=== PATIENT | male | born 1980 | race Two or more races ===

== ENCOUNTER 2023-05-10 11:17 | Inpatient (IN) ==
--- NOTE | 2023-05-10 12:07 | Emergency Department Note ---
History of Present Illness General Chief complaint: Mental Health Evaluation Stated complaint: DOC REF,MHE Time Seen by Provider: 05/10/23 11:58 History of Present Illness 43-year-old female presents emergency department with complaint of auditory hallucinations that started over the past few weeks. Patient was supposed to be on Risperdal. Patient states that the auditory voices are telling him mean things. Patient states he is not currently suicidal or homicidal. Patient denies any alcohol or drug ingestion. Patient has a history of the same. There are no other complaints Past Med/Surg History Social History Smoking Status: Never smoker Feels Safe at Home: Yes Gender Identity: Male Immunizations: Past medical history includes schizophrenia Social history negative for alcohol or drugs Review of Systems A total of 10 systems reviewed and were otherwise negative Psychiatric: + auditory hallucinations; no anxiety Physical Exam Vital Signs Vital Signs - 24 hr 05/10/23 11:20 05/10/23 15:01 Temperature 36.6 C Temperature Source Skin Pulse Rate 117 H Pulse Rate [Finger] 112 H Respiratory Rate 18 18 Blood Pressure 155/95 H Blood Pressure [Right Arm] 156/96 H Blood Pressure Mean 115 Blood Pressure Mean [Right Arm] 116 Pulse Oximetry 98 97 Oxygen Delivery Method Room Air Room Air Sepsis Recent Fever Within 48 Hours No Sepsis New/Unexplained Change in Mental Status No Sepsis Action Taken by Nursing No Action Required GENERAL: Patient is awake alert in no acute distress patient is resting comfortably and showing no signs of anxiety EYES: The conjunctivae are clear. The pupils are round and reactive. EARS, NOSE, MOUTH AND THROAT: The nose is without any evidence of any deformity. Mucous membranes are moist. Tongue is midline. NECK: The neck is nontender and supple. RESPIRATORY: Normal respiratory effort is noted there is no evidence of wheezing rhonchi or rales CARDIOVASCULAR: Regular rate and rhythm noted there no murmurs rubs or gallops normal S1 normal S2. GASTROINTESTINAL: The abdomen is soft. Abdomen is nontender. PELVIS: The Pelvis is stable. No tenderness to palpation is noted. BACK: No midline tenderness or or step-off noted range of motion in flexion extension as well as rotation no signs of muscle spasm noted MUSCULOSKELETAL/EXTREMITIES: There is no evidence of gross deformity full range of motion is noted in the hips and shoulders. SKIN: There is no obvious evidence of any rash. There are no petechiae, pallor or cyanosis noted. NEUROLOGIC: Patient is awake alert and oriented x3 strength is symmetric Psych, hallucinations that are auditory, no suicidal or homicidal ideation Medical Decision Making Medical Records Attestation: I reviewed the patient's medical records. Home Medications Current Medication List: was personally reviewed by me Laboratory Data Attestation: I reviewed the patient's lab results. Labs interpreted by me are unremarkable 05/10/23 11:39 05/10/23 11:39 Lab Results 05/10/23 05/10/23 05/10/23 Range/Units 11:39 11:39 11:39 WBC 8.27 (4.8-10.8) K/ul RBC 5.16 (4.70-6.10) M/uL Hgb 15.9 (14.0-18.0) g/dl Hct 46.6 (42.0-52.0) % MCV 90.3 (80.0-100.0) fL MCH 30.8 (25.0-34.0) pg MCHC 34.1 (32.0-36.0) g/dL RDW Std Deviation 42.2 (36.4-46.3) fL RDW Coeff of Daria 12.7 (11.5-14.5) % Plt Count 255 (130-400) K/uL MPV 10.4 (9.4-12.4) fL Immature Gran % (Auto) 0.2 % Neut % (Auto) 69.8 % Lymph % (Auto) 22.1 % [place] % (Auto) 7.3 % Eos % (Auto) 0.4 % Baso % (Auto) 0.2 % Neut # (Auto) 5.77 (1.40-6.50) K/uL Lymph # (Auto) 1.83 (1.20-3.40) K/uL [place] # (Auto) 0.60 H (0.11-0.59) K/uL Eos # (Auto) 0.03 (0.00-0.50) K/uL Baso # (Auto) 0.02 (0.00-0.20) K/uL Immature Gran # (Auto) 0.02 (0.01-0.20) K/uL Sodium 136 (136-145) mmol/L Potassium 4.0 (3.5-5.1) mmol/L Chloride 104 (98-107) mmol/L Carbon Dioxide 23 (21-32) mmol/L Anion Gap 9 (3-11) BUN 14 (6-23) mg/dl Creatinine 1.01 (0.6-1.4) mg/dl Est Cr Clr Drug Dosing 117.9 ml/min Est GFR ( Amer) 105.1 ml/min Est GFR (Non-Af Amer) 90.7 ml/min BUN/Creatinine Ratio 13.9 (10-20) Glucose 92 (70-99(Fasting)) mg/dl Calcium 10.0 (8.6-10.3) mg/dl Total Bilirubin 0.6 (0.2-1.0) mg/dl AST 30 (13-39) U/L ALT 57 H (7-52) U/L Alkaline Phosphatase 74 (34-104) U/L Total Protein 8.6 H (6.0-8.3) gm/dl Albumin 4.7 (3.4-5.0) gm/dl Globulin 3.9 (2.5-4.0) gm/dl Albumin/Globulin Ratio 1.2 (0.9-2) TSH 2.330 (0.300-4.500) uIu/ml Urine Color Urine Appearance (Clear) Urine pH (4.5-7.5) Ur Specific [place] (1.000-1.030) Urine Protein (Negative) Urine Glucose (UA) (Negative) Urine Ketones (Negative) Urine Blood (Negative) Urine Nitrite (Negative) Urine Bilirubin (Negative) Urine Urobilinogen (Negative) Ur Leukocyte Esterase (Negative) Salicylates < 3.0 L (3.0-30) mg/dl Urine Opiates Screen (Neg) Ur Methadone, Qual (Neg) Acetaminophen < 3 L (10-30) ug/ml Urine Barbiturates (Neg) Ur Phencyclidine (PCP) (Neg) U Amphetamin/Meth Scrn (Neg) MDMA (Ecstasy) Screen (Neg) U Benzodiazepines Scrn (Neg) Ur Cocaine Metabolite (Neg) U Marijuana (THC) Screen (Neg) Ethyl Alcohol mg/dL (<10.0) mg/dl SARS-CoV-2, RNA, NAAT (NEGATIVE) 05/10/23 05/10/23 05/10/23 Range/Units 11:39 11:39 11:39 WBC (4.8-10.8) K/ul RBC (4.70-6.10) M/uL Hgb (14.0-18.0) g/dl Hct (42.0-52.0) % MCV (80.0-100.0) fL MCH (25.0-34.0) pg MCHC (32.0-36.0) g/dL RDW Std Deviation (36.4-46.3) fL RDW Coeff of Daria (11.5-14.5) % Plt Count (130-400) K/uL MPV (9.4-12.4) fL Immature Gran % (Auto) % Neut % (Auto) % Lymph % (Auto) % [place] % (Auto) % Eos % (Auto) % Baso % (Auto) % Neut # (Auto) (1.40-6.50) K/uL Lymph # (Auto) (1.20-3.40) K/uL [place] # (Auto) (0.11-0.59) K/uL Eos # (Auto) (0.00-0.50) K/uL Baso # (Auto) (0.00-0.20) K/uL Immature Gran # (Auto) (0.01-0.20) K/uL Sodium (136-145) mmol/L Potassium (3.5-5.1) mmol/L Chloride (98-107) mmol/L Carbon Dioxide (21-32) mmol/L Anion Gap (3-11) BUN (6-23) mg/dl Creatinine (0.6-1.4) mg/dl Est Cr Clr Drug Dosing ml/min Est GFR ( Amer) ml/min Est GFR (Non-Af Amer) ml/min BUN/Creatinine Ratio (10-20) Glucose (70-99(Fasting)) mg/dl Calcium (8.6-10.3) mg/dl Total Bilirubin (0.2-1.0) mg/dl AST (13-39) U/L ALT (7-52) U/L Alkaline Phosphatase (34-104) U/L Total Protein (6.0-8.3) gm/dl Albumin (3.4-5.0) gm/dl Globulin (2.5-4.0) gm/dl Albumin/Globulin Ratio (0.9-2) TSH (0.300-4.500) uIu/ml Urine Color Yellow Urine Appearance Clear (Clear) Urine pH 7.0 (4.5-7.5) Ur Specific [place] 1.016 (1.000-1.030) Urine Protein Negative (Negative) Urine Glucose (UA) Negative (Negative) Urine Ketones Negative (Negative) Urine Blood Negative (Negative) Urine Nitrite Negative (Negative) Urine Bilirubin Negative (Negative) Urine Urobilinogen Negative (Negative) Ur Leukocyte Esterase Negative (Negative) Salicylates (3.0-30) mg/dl Urine Opiates Screen (Neg) Ur Methadone, Qual (Neg) Acetaminophen (10-30) ug/ml Urine Barbiturates (Neg) Ur Phencyclidine (PCP) (Neg) U Amphetamin/Meth Scrn (Neg) MDMA (Ecstasy) Screen (Neg) U Benzodiazepines Scrn (Neg) Ur Cocaine Metabolite (Neg) U Marijuana (THC) Screen (Neg) Ethyl Alcohol mg/dL < 10.0 (<10.0) mg/dl SARS-CoV-2, RNA, NAAT NEGATIVE (NEGATIVE) 05/10/23 Range/Units 11:39 WBC (4.8-10.8) K/ul RBC (4.70-6.10) M/uL Hgb (14.0-18.0) g/dl Hct (42.0-52.0) % MCV (80.0-100.0) fL MCH (25.0-34.0) pg MCHC (32.0-36.0) g/dL RDW Std Deviation (36.4-46.3) fL RDW Coeff of Daria (11.5-14.5) % Plt Count (130-400) K/uL MPV (9.4-12.4) fL Immature Gran % (Auto) % Neut % (Auto) % Lymph % (Auto) % [place] % (Auto) % Eos % (Auto) % Baso % (Auto) % Neut # (Auto) (1.40-6.50) K/uL Lymph # (Auto) (1.20-3.40) K/uL [place] # (Auto) (0.11-0.59) K/uL Eos # (Auto) (0.00-0.50) K/uL Baso # (Auto) (0.00-0.20) K/uL Immature Gran # (Auto) (0.01-0.20) K/uL Sodium (136-145) mmol/L Potassium (3.5-5.1) mmol/L Chloride (98-107) mmol/L Carbon Dioxide (21-32) mmol/L Anion Gap (3-11) BUN (6-23) mg/dl Creatinine (0.6-1.4) mg/dl Est Cr Clr Drug Dosing ml/min Est GFR ( Amer) ml/min Est GFR (Non-Af Amer) ml/min BUN/Creatinine Ratio (10-20) Glucose (70-99(Fasting)) mg/dl Calcium (8.6-10.3) mg/dl Total Bilirubin (0.2-1.0) mg/dl AST (13-39) U/L ALT (7-52) U/L Alkaline Phosphatase (34-104) U/L Total Protein (6.0-8.3) gm/dl Albumin (3.4-5.0) gm/dl Globulin (2.5-4.0) gm/dl Albumin/Globulin Ratio (0.9-2) TSH (0.300-4.500) uIu/ml Urine Color Urine Appearance (Clear) Urine pH (4.5-7.5) Ur Specific [place] (1.000-1.030) Urine Protein (Negative) Urine Glucose (UA) (Negative) Urine Ketones (Negative) Urine Blood (Negative) Urine Nitrite (Negative) Urine Bilirubin (Negative) Urine Urobilinogen (Negative) Ur Leukocyte Esterase (Negative) Salicylates (3.0-30) mg/dl Urine Opiates Screen Neg (Neg) Ur Methadone, Qual Neg (Neg) Acetaminophen (10-30) ug/ml Urine Barbiturates Neg (Neg) Ur Phencyclidine (PCP) Neg (Neg) U Amphetamin/Meth Scrn Neg (Neg) MDMA (Ecstasy) Screen Neg (Neg) U Benzodiazepines Scrn Neg (Neg) Ur Cocaine Metabolite Neg (Neg) U Marijuana (THC) Screen Neg (Neg) Ethyl Alcohol mg/dL (<10.0) mg/dl SARS-CoV-2, RNA, NAAT (NEGATIVE) ECG Data Attestation: I personally reviewed and interpreted this ECG as follows: Additional Comments: EKG interpreted by me sinus tachycardia rate of 115, normal intervals normal axis, nonspecific ST-T change in the anterolateral leads no obvious ST segment elevation or depression, no prior EKGs for comparison MDM Narrative Medical decision making differential diagnosis includes schizophrenia, bipolar disorder, anxiety, medication noncompliance, suicidal ideation Plan is to check psychiatric labs and have case management evaluate the patient for psychiatric disposition Family is at bedside and the father states that the patient has a history of hallucinations and has been off his meds. They report that he is not currently suicidal Patient is medically cleared for psychiatric evaluation 1500 3 S. requested an EKG patient has no current chest pain the patient is very anxious, the patient has no prior EKG, I do not suspect ischemia in this patient at this time Case was turned over at [address] Ward pending disposition Impression & Plan Suicidal ideation, Auditory hallucination Discharge Plan Visit Data Chief Complaint: Mental Health Evaluation Stated Complaint: DOC REF,MHE ED Provider: Agnes Ward Discharge Problem: Suicidal ideation, Auditory hallucination Patient Disposition: Still a Patient Forms Stand Alone Forms: My [facility], Suicide Prevention Resources Referrals [facility] [Non-Staff] -
[2023-05-10 12:30] LABS: Basophils # (auto) 0.02 K/uL (0.00-0.20); Basophils % (auto) 0.2 %; Eosinophils # (auto) 0.03 K/uL (0.00-0.50); Eosinophils % (auto) 0.4 %; Hematocrit (blood only) 46.6 % (42.0-52.0); Hemoglobin 15.9 g/dl (14.0-18.0); Immature Granulocytes # (auto) 0.02 K/uL (0.01-0.20); Immature Granulocytes % (auto) 0.2 %; Lymphocytes # (auto) 1.83 K/uL (1.20-3.40); Lymphocytes % (auto) 22.1 %; Mean Corpuscular Hemoglobin 30.8 pg (25.0-34.0); Mean Corpuscular Hgb Conc 34.1 g/dL (32.0-36.0); Mean Corpuscular Volume 90.3 fL (80.0-100.0); Mean Platelet Volume 10.4 fL (9.4-12.4); Monocytes % (auto) 7.3 %; Neutrophils # (auto) 5.77 K/uL (1.40-6.50); Neutrophils % (auto) 69.8 %; Platelet Count 255 K/uL (130-400); RDW Coefficient of Variation 12.7 % (11.5-14.5); RDW Standard Deviation 42.2 fL (36.4-46.3); Red Blood Count 5.16 M/uL (4.70-6.10); White Blood Count 8.27 K/ul (4.8-10.8)
[2023-05-10 12:31] LABS: Appearance Urine Clear (Clear); Bilirubin Urine Negative (Negative); Blood Urine Negative (Negative); Color Urine Yellow; Glucose Urine UA Negative (Negative); Ketones Urine Negative (Negative); Leukocyte Esterase Urine Negative (Negative); Nitrite Urine Negative (Negative); Protein Urine Negative (Negative); Specific Gravity Urine 1.016 (1.000-1.030); Urobilinogen Urine Negative (Negative)
[2023-05-10 12:44] LABS: Albumin Level 4.7 gm/dl (3.4-5.0); Bilirubin,Total 0.6 mg/dl (0.2-1.0)
[2023-05-10 12:50] LABS: Albumin Globulin Ratio 1.2 (0.9-2); BUN Creatinine Ratio 13.9 (10-20); Creatinine Clr Calc Pharmacy 117.9 ml/min; Est GFR (African American) 105.1 ml/min; Est GFR (Non-African American) 90.7 ml/min; Globulin 3.9 gm/dl (2.5-4.0); Total Protein 8.6 gm/dl (6.0-8.3)
[2023-05-10 13:06] LABS: Acetaminophen < 3 ug/ml (10-30); Salicylate < 3.0 mg/dl (3.0-30)
[2023-05-10 13:10] LABS: Amphetamines+Metham, Urine Neg (Neg); Barbiturates, Urine Neg (Neg); Benzodiazepine, Urine Neg (Neg); Cocaine, Urine Neg (Neg); MDMA (Ecstacy), Urine Neg (Neg); Methadone, Urine Neg (Neg); Opiate, Urine Neg (Neg); Phencyclidine, Urine Neg (Neg)
[2023-05-10 13:41] LABS: Thyroid Stimulating Hormone 2.33 uIu/ml (0.300-4.500)
--- NOTE | 2023-05-10 17:00 | Emergency Department Note ---
ED Visit Note I received this patient in signout at the change of shift from Dr. Fuentes pending psychiatric referral for auditory hallucinations, suicidality without a plan. Patient was evaluated by 3 S. and accepted and accepted for inpatient psychiatric admission. Please refer to previous documentation for further details of the history, physical and visit. .
[2023-05-10] MEDS ORDERED: ACETAMINOPHEN 325 MG TAB PO PRN (21:02)
[2023-05-10] MEDS ORDERED: MAGNESIUM HYDROXIDE SUSP 30 ML UDC PO PRN (21:02)
[2023-05-10] MEDS ORDERED: hydrOXYzine HCl 25 MG TAB PO PRN ×2 (21:02)
[2023-05-10] MEDS ORDERED: SODIUM CHLORIDE 0.65% NA SOLN 45 ML (OCEAN) PRN (21:02)
[2023-05-10] MEDS ORDERED: ALUMINUM/MAGNESIUM SUSP 30 ML UDC PO PRN (21:02)
[2023-05-10] MEDS ORDERED: BISMUTH SUBSALICYLATE LIQD 236 ML PO PRN (21:02)
[2023-05-10] MEDS ORDERED: risperiDONE 3 MG TABLET PO SCH (22:00)
--- NOTE | 2023-05-10 22:36 | Electrocardiogram Report ---
Test Reason : Blood Pressure : / mmHG Vent. Rate : 115 BPM Atrial Rate : 115 BPM P-R Int : 130 ms QRS Dur : 086 ms QT Int : 304 ms P-R-T Axes : 044 034 -32 degrees QTc Int : 420 ms Sinus tachycardia Cannot rule out Inferior infarct , age undetermined Abnormal ECG No previous ECGs available Confirmed by Jac Abdi ([id number]) on 05/10/2023 10:36:26 PM Referred By: REFERRED SELF Confirmed By:Jac Abdi
--- NOTE | 2023-05-11 16:11 | History & Physical ---
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 He has a long history of psychosis and mood symptoms. These were under good control on risperidone, but he cut the dose due to weight gain and reports no current benefit at all. He's very depressed and anxious, and is experiencing a constant negative commentary on his actions and voices telling him others would be better off if he were . He finds this frightening and ego-dystonic and denies any suicidal intent or plan. Discussed the evidence that risperidone is effective, albeit only at a dose that seems to cause side effects. Paliperidone might therefore be a reasonable alternative, and he doesn't recall any previous trials of this medication (nor of aripiprazole, which could well cause less weight gain than risperidone and which he also doesn't think he's taken before. Risks and benefits of, and alternatives to, the use of paliperidone (Invega) for mood and psychosis were reviewed. This discussion included but was not limited to issues known potentially to be associated with use of such medication, especially at high doses or with longer use, including sedation, weight gain, problems with glucose metabolism including Type II diabetes, problems with lipid metabolism, cardiac conduction problems, or rarely involuntary movements, parkinsonian symptoms, or even acute dystonia or life- threatening Neuroleptic Malignant Syndrome. Discussed the need for periodic monitoring of fasting glucose or Hemoglobin A1c and fasting lipid panel, which the patient declined, for baseline monitoring. The patient agreed to start a trial of paliperidone. Overall I spent a total of 68 minutes for this admission including review of chart records, review of test results, direct evaluation of the patient [id number], reconciling and ordering medication, medication education with the patient, risk assessment, discussion during interdisciplinary treatment rounds, and documentation in the electronic health record. (1) Schizoaffective disorder, bipolar type: Plan The patient was admitted to the [facility] ([facility]) on q15 minute checks (behavioral with suicide precautions) for safety.The patient will participate in group, recreational, and milieu therapies and will be offered additional individual and family sessions as clinically appropriate. * stop risperidone * start paliperidone 3 mg QHS Inventory Assets Strengths: supportive relationships, voluntary, intelligent employed, Needs: safety and stabilization, medication adjustment, additional coping skills Suicide Risk Level Suicide Risk Level: Moderate (q15 min suicide checks) Suicide Risk Level Comments: denies suicidal thoughts but is having command auditory hallucinations Risk Factors Assessment Male: Yes : Yes Do You Have Access To A Gun?: No Health Problems: No Mental Health Diagnoses: Yes Previous Psychiatric Hospitalization: Yes Protective Factors Assessment : No Responsible for Young Children: No Employed: Yes Supportive Family: Yes Psychiatric History Identifying Data MARCELO DRAPER is a 43-year-old M who currently lives in [place] usually alone, but whose parents have been staying with him due to their concerns about his, with [], has a history of [], and was admitted on 05/10/23 19:39 on a 201 voluntary commitment for suicidal command auditory hallucinations. Chief Complaint "The voices have quieted some". History of Present Illness As part of a thorough review of the available medical records, I have read and confirmed the following note by the ED physician: "43-year-old female [sic] presents emergency department with complaint of auditory hallucinations that started over the past few weeks. Patient was supposed to be on Risperdal. Patient states that the auditory voices are telling him mean things. Patient states he is not currently suicidal or homicidal. Patient denies any alcohol or drug ingestion. Patient has a history of the same." and the following note by the ED psychiatric child support case officer: "Patient present flat, reporting disorganized thought process, minimally responding to questions and occasional irritation. For the past few weeks, patient has been experiencing command hallucination with the voices saying everybody would be better off if you kill yourself. At this time, patient denies acting out on these thoughts yet or developing a plan. Prior to arrival, patient was seen at his outpatient provider at [facility] and she recommended that patient present to the ED for further evaluation. Patient is prescribed Risperdal, but cut his dose in half, on his own volition and not recommended by his medication management provider. Patient was unable to articulate why he decided to cut his dosage. 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 Patient reports depressive symptoms as social withdrawal, anhedonia, lack of motivation, decreased appetite, loss of daily functioning, feelings of helpless/hopelessness, decreased concentration and decreased sleep of 5-6 hours of broken sleep. Patient described severe anxiety on most days with symptoms of sweating, excessive worry, sleep disturbance and heart palpitations. Patient reports rarely drinking alcohol and denying drug or tobacco use. Patient lives in an apartment with his parents. Patient reports previous psychiatric admissions to include [facility] and [facility]. Patient acknowledges he is struggling and knows when he needs inpatient help and is voluntary for treatment" Review of the medical record reveals no previous or outside psychiatric records, despite his report of having been admitted here before. He appears to carry a d iagnosis of schizoaffective disorder. Review of pertinent labs reveals they are noncontributory. A urine toxicology screen was negative for all tested substrates. BAL was <10 mg/dL. Pt reports chronic voices for many years. These seem to be female and often take the form of inaudible whispers but which at times make a running, derogatory comment on everything he does. He says he's been admitted numerous times for this including here, but records of any admissions do not appear in the EHR. He says he's supposed to be taking risperidone 3 mg BID prescribed at [facility] and that at that dose the voices are barely noticeable. However, he's experienced significant weight gain and has reduced the dose to 1.5 mg once a day without having told his prescriber. Since that change the voices have recurred and have been telling him that he's useless and others would be better off if he were to kill himself. He's felt very depressed, and has withdrawn from his already scant social life. He has lost interest, has no energy or motivation, reports initial and middle insomnia, has reduced appetite and has "pretty much stopped doing everything". He has felt very anxious with some episodic panic symptoms. Past Psychiatric History Previous Psych History: long history of psychosis and mood symptoms Current Psychiatric Diagnosis: [facility]: [facility] Previous Psych Admissions: Pt reports here and Counts include 234 beds at the [facility] Do You Have Access To A Gun?: No History of Previous Suicide Attempt: Yes Past Medication Trials: says he's had "lots", doesn't recognize aripiprazole/Abilify or paliperidone/Invega as something he's triedd Allergies Allergy/AdvReac Type Severity Reaction Status Date / Time No Known Allergies Allergy Unverified 05/10/23 17:17 Home Medications Medication Instructions Recorded Confirmed Type risperidone 3 mg tablet 3 mg PO HS 05/10/23 05/10/23 History Family History Family History of: Psychosis/ThoughtDisorder Family Mental Health History Comment: older brother diagnosed with schizophrenia-- brother has been hospitalized in the past Alcohol History Hx of Alcohol Use Over the Past 12 Months: Yes (occasional) AUDIT Total Score: 1 Smoking Use Have You Smoked or Used Tobacco Products in the Last 30 Days: No Smoking Status: Never smoker Substance History Hx of Prescription Med Misuse Over the Past 12 Months: No Hx of Over the Counter Med Misuse Over the Past 12 Months: No Hx of Inhalent Misuse Over the Past 12 Months: No Hx of Organic Substance Use Over the Past 12 Months: No Hx of Illegal Substances/Street Drug Use Over Past 12 Months: No Problems as a Result of Past Substance Use: None Identified Personal History Living Arrangements: Apartment Living Arrangements Comments: parents come and go often, are here right now Highest Grade Completed: Graduate School Highest Grade Completed Comment: just completed Ph.D at [employer] Marital Status: Single Number Of Children: 0 Beliefs That Will Affect Care: None Patient History Medical History (Updated 05/11/23 @ 16:31 by Hernan Sarabia MD) Schizoaffective disorder, bipolar type Social History Smoking Status: Never smoker Preferred Language: French Communication Ability: Effective [place] [employer] Required: No Beliefs That Will Affect Care: None Feels Safe at Home: Yes Gender Identity: Male Assistive Devices: None Review of Systems Psychiatric: + depression, + hopelessness, + anhedonia, + abnormal sleep pattern, + change in appetite, + suicidal ideation, + anxiety, + difficulty concentrating and + auditory hallucinations Physical Exam Psychiatric: Orientation: alert, oriented to person, oriented to place, oriented to time and cooperative Apperance: appropriately dressed and appropriately groomed Eye Contact: + fair eye contact (blinks a lot) Motor Behavior: + psychomotor retardation Speech: normal rate/rhythm/volume of speech (aprosodic) Affect: + flat affect; + mood not congruent with affect Mood: + depressed mood and + anxious mood Thought Process: + thought blocking and + concrete thought process Thought Content: + hopelessness and + loneliness Suicidal Thoughts: denies suicidal thoughts ( command hallucinations that he doesn't think of as his own thoughts), denies suicidal plan and denies suicidal intent Homicidal Thoughts: denies homicidal thoughts Hallucinations: + auditory hallucinations (constant female voices; often whispers, sometimes critical commentary); no visual hallucinations Cognition: recent memory grossly intact, remote memory grossly intact and language grossly intact; + attention not intact (distracted by voices) Estimated Intelligence: consistent with education level Insight: + fair insight Judgment: + fair judgement Vital Signs (Past 24 Hours): Last Vital Signs Temp 36.5 C 05/11/23 06:40 Pulse 101 H 05/11/23 06:41 Resp 18 05/11/23 06:40 BP 139/96 05/11/23 06:41 Pulse Ox 100 05/10/23 20:45 O2 Del Method Room Air 05/10/23 20:45 Exam Statement: A physical exam was performed in the ED for the purposes of medical clearance. I accept that physical as correct and adequate for the purposes of the inpatient physical exam. Results & Data ([facility]) Current Inpatient Medications Current Inpatient Medications: Current Inpatient Medications Acetaminophen (Acetaminophen 325 Mg Tab) 650 mg PO Q4H PRN PRN Reason: Headache or Minor Fever Stop: 06/09/23 21:01 Al Hydrox/Mg Hydrox/Simethicone (Aluminum/Magnesium Susp 30 Ml Udc) 30 ml PO Q4H PRN PRN Reason: GI Upset Stop: 06/09/23 21:01 Bismuth Subsalicylate (Bismuth Subsalicylate Liqd 236 Ml) 15 ml PO PRN PRN PRN Reason: Loose Stool Stop: 06/09/23 21:01 Hydroxyzine HCl (Hydroxyzine Hcl 25 Mg Tab) 50 mg PO HSZ PRN PRN Reason: Insomnia Stop: 06/09/23 21:01 Hydroxyzine HCl (Hydroxyzine Hcl 25 Mg Tab) 25 mg PO Q4H PRN PRN Reason: Anxiety Stop: 06/09/23 21:01 Magnesium Hydroxide (Magnesium Hydroxide Susp 30 Ml Udc) 30 ml PO DAILY PRN PRN Reason: Constipation Stop: 06/09/23 21:01 Risperidone (Risperidone 3 Mg Tablet) 3 mg PO HS ANETA Stop: 06/09/23 21:59 Last Admin: 05/10/23 21:56 Dose: 3 mg Sodium Chloride (Sodium Chloride 0.65% Na Soln 45 Ml ([place])) 1 - 2 sprays NA PRN PRN PRN Reason: Nasal Dryness/Congestion Stop: 06/09/23 21:01
[2023-05-11] MEDS: PALIPERIDONE 3 MG TABCR PO SCH (21:24)
--- NOTE | 2023-05-12 09:21 | Psychiatric Progress Note ---
Date of Service May 12, 2023 Impression / Recommendations Impression Agree with assessment per Dr. 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 He has a long history of psychosis and mood symptoms. These were under good control on risperidone, but he cut the dose due to weight gain and reports no current benefit at all. He's very depressed and anxious, and is experiencing a constant negative commentary on his actions and voices telling him others would be better off if he were . He finds this frightening and ego-dystonic and denies any suicidal intent or plan. 05/12/2023: Reviewed interim progress. Feels so far the Invega may be helping to lessen the voices today as he has not experienced any commands to hurt himself today. Will continue to monitor his BP as this was elevated this morning though he denies any associated symptoms with this. Had brief abdominal pain last night which has since resolved. Will continue with Invega trial for now. Overall, I spent a total of 35 minutes with this case including review of chart records, direct evaluation of the patient at bedside, counseling the patient, discussion during interdisciplinary treatment rounds, risk assessment, and documentation in the electronic health record. (1) Schizoaffective disorder, bipolar type: Plan 05/12/2023: Continue current medications and tx plan. Fasting lipid panel and glucose in AM given use of Invega. 05/11/2023: The patient was admitted to the [facility] ([facility] mental health unit) on q15 minute checks (behavioral with suicide precautions) for safety.The patient will participate in group, recreational, and milieu therapies and will be offered additional individual and family sessions as clinically appropriate. * stop risperidone * start paliperidone 3 mg QHS Inventory Assets Strengths: supportive relationships, voluntary, intelligent employed, Needs: safety and stabilization, medication adjustment, additional coping skills Suicide Risk Level Suicide Risk Level: High-Moderate (q15 min suicide checks) (periods of command AH to kill himself but these are ego-dystonic and he feels comfortable alerting staff if these resume or intensify or if he feels unable to remain safe, currently denies any commands to hurt himself ) Risk Factors Assessment Male: Yes : Yes Do You Have Access To A Gun?: No Health Problems: No Mental Health Diagnoses: Yes Previous Psychiatric Hospitalization: Yes Protective Factors Assessment : No Responsible for Young Children: No Employed: Yes Supportive Family: Yes Interval History Identifying Information MARCELO DRAPER is a 43-year-old M who currently lives in [place] usually alone, but whose parents have been staying with him due to their concerns about him with a history of schizoaffective disorder, and was admitted on 05/10/23 19:39 on a 201 voluntary commitment for suicidal command auditory hallucinations. Chief Complaint "A little less today". Review of Systems Sleep Information Total Hours of Sleep: 5.5 Meal Information Percent Meal Consumed - Breakfast: 100 Percent Meal Consumed - Lunch: 100 Percent Meal Consumed - Dinner: 100 Subjective Subjective Patient was seen & assessed and interval progress reviewed with treatment team nursing and social work. Very flat, depressed, suspicious. Has not been leaving his room except for meals. Not attending any groups. Reports he experienced some abdominal pain last night after taking Invega but that this resolved and none so far today. Thinks the Invega is helping to quiet the voices some. Yesterday they were telling him to kill himself, they have not done that today. He denies any associated symptoms with his elevated BP this morning, unclear if he's had HTN or high BP in the past. Physical Exam Psychiatric Orientation: alert, oriented x 3 and + guarded Apperance: appropriately dressed and appropriately groomed Eye Contact: + fair eye contact Motor Behavior: + psychomotor retardation Speech: normal rate/rhythm/volume of speech (stutters at times) Affect: + flat affect Mood: + depressed mood and + anxious mood Thought Process: + thought blocking and + concrete thought process Thought Content: reality based without delusions and + hopelessness Suicidal Thoughts: denies suicidal thoughts ( command hallucinations that he doesn't think of as his own thoughts ), denies suicidal plan and denies suicidal intent Homicidal Thoughts: denies homicidal thoughts Hallucinations: + auditory hallucinations (sometimes critical commentary, denies any command so far today); no visual hallucinations Cognition: recent memory grossly intact, remote memory grossly intact and language grossly intact; + attention not intact (distracted by voices) Estimated Intelligence: consistent with education level Insight: + fair insight Judgment: + fair judgement Vital Signs (Past 24 Hours) Last Vital Signs Temp 37.7 C H 05/12/23 06:33 Pulse 89 05/12/23 06:35 Resp 18 05/12/23 06:33 BP 159/105 H 05/12/23 06:35 Pulse Ox 100 05/10/23 20:45 O2 Del Method Room Air 05/10/23 20:45 Results & Data ([facility]) Current Inpatient Medications Current Inpatient Medications: Current Inpatient Medications Acetaminophen (Acetaminophen 325 Mg Tab) 650 mg PO Q4H PRN PRN Reason: Headache or Minor Fever Stop: 06/09/23 21:01 Al Hydrox/Mg Hydrox/Simethicone (Aluminum/Magnesium Susp 30 Ml Udc) 30 ml PO Q4H PRN PRN Reason: GI Upset Stop: 06/09/23 21:01 Bismuth Subsalicylate (Bismuth Subsalicylate Liqd 236 Ml) 15 ml PO PRN PRN PRN Reason: Loose Stool Stop: 06/09/23 21:01 Hydroxyzine HCl (Hydroxyzine Hcl 25 Mg Tab) 50 mg PO HSZ PRN PRN Reason: Insomnia Stop: 06/09/23 21:01 Hydroxyzine HCl (Hydroxyzine Hcl 25 Mg Tab) 25 mg PO Q4H PRN PRN Reason: Anxiety Stop: 06/09/23 21:01 Magnesium Hydroxide (Magnesium Hydroxide Susp 30 Ml Udc) 30 ml PO DAILY PRN PRN Reason: Constipation Stop: 06/09/23 21:01 Paliperidone (Paliperidone 3 Mg Tabcr) 3 mg PO HS ANETA Stop: 06/10/23 21:59 Last Admin: 05/11/23 21:24 Dose: 3 mg Sodium Chloride (Sodium Chloride 0.65% Na Soln 45 Ml ([place])) 1 - 2 sprays NA PRN PRN PRN Reason: Nasal Dryness/Congestion Stop: 06/09/23 21:01 Mental Health & Subst Abuse Tx Therapist Name of Therapist: Shagufta [facility] Post Discharge Appointments Primary Care Physician Name Of Family Doctor/PCP: Denies
[2023-05-12] MEDS: PALIPERIDONE 3 MG TABCR PO SCH (21:11)
[2023-05-13 08:08] LABS: Chol HDL Ratio 4.4 (0-5)
--- NOTE | 2023-05-13 09:10 | Psychiatric Progress Note ---
Date of Service May 13, 2023 Impression / Recommendations Impression Agree with assessment per Dr. 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 He has a long history of psychosis and mood symptoms. These were under good control on risperidone, but he cut the dose due to weight gain and reports no current benefit at all. He's very depressed and anxious, and is experiencing a constant negative commentary on his actions and voices telling him others would be better off if he were . He finds this frightening and ego-dystonic and denies any suicidal intent or plan. 05/13/2023: He reports improvement in voices but seems internally preoccupied and remains very isolative to his room with no spontaneous conversation and seems guarded vs anxious. Did seem to brighten when his parents visited yesterday. Fasting labwork reviewed, TGs slightly elevated, fasting glucose 100, cholesterol normal. Tolerating Invega so far. Overall, I spent a total of 35 minutes with this case including review of chart records, direct evaluation of the patient at bedside, counseling the patient, discussion during interdisciplinary treatment rounds, risk assessment, and documentation in the electronic health record. (1) Schizoaffective disorder, bipolar type: Plan 05/13/2023: Continue current medications and tx plan. 05/12/2023: Continue current medications and tx plan. Fasting lipid panel and glucose in AM given use of Invega. 05/11/2023: The patient was admitted to the [facility] ([facility] mental health unit) on q15 minute checks (behavioral with suicide precautions) for safety.The patient will participate in group, recreational, and milieu therapies and will be offered additional individual and family sessions as clinically appropriate. * stop risperidone * start paliperidone 3 mg QHS Inventory Assets Strengths: supportive relationships, voluntary, intelligent employed, Needs: safety and stabilization, medication adjustment, additional coping skills Suicide Risk Level Suicide Risk Level: Moderate (q15 min suicide checks) (periods of command AH to kill himself but these are ego-dystonic and he feels comfortable alerting staff if these resume or intensify or if he feels unable to remain safe, currently denies any AH ) Risk Factors Assessment Male: Yes : Yes Do You Have Access To A Gun?: No Health Problems: No Mental Health Diagnoses: Yes Previous Psychiatric Hospitalization: Yes Protective Factors Assessment : No Responsible for Young Children: No Employed: Yes Supportive Family: Yes Interval History Identifying Information MARCELO DRAPER is a 43-year-old M who currently lives in [place] usually alone, but whose parents have been staying with him due to their concerns about him with a history of schizoaffective disorder, and was admitted on 05/10/23 19:39 on a 201 voluntary commitment for suicidal command auditory hallucinations. Chief Complaint "I'm ok". Review of Systems Sleep Information Total Hours of Sleep: 6.25 Meal Information Percent Meal Consumed - Breakfast: 100 Percent Meal Consumed - Lunch: 100 Percent Meal Consumed - Dinner: 100 Subjective Subjective Patient was seen & assessed and interval progress reviewed with treatment team nursing and social work. Visited with his parents yesterday. No groups during the day yesterday. Conversing appropriately but with some delay with RN yesterday. Denied hearing any voices yesterday. Encouraged to attend groups and he did attend evening community meeting but did not participate. Showered this morning. Reading textbook in his room. Difficult to engage around neutral topics but reports no current auditory hallucinations. Had mild abdominal pain last night after taking Invega but feels this was much less than night prior. He wants to continue with Invega for now. Feels his elevated BP is likely due to being "nervous" when it is checked, reports this is always the case for him, unclear if prior history of white coat HTN. Physical Exam Psychiatric Orientation: alert, oriented x 3 and + guarded Apperance: appropriately dressed and appropriately groomed Eye Contact: + fair eye contact Motor Behavior: + psychomotor retardation Speech: normal rate/rhythm/volume of speech (stutters at times) Affect: + flat affect Mood: + depressed mood and + anxious mood Thought Process: + thought blocking and + concrete thought process Thought Content: reality based without delusions and + hopelessness Suicidal Thoughts: denies suicidal thoughts, denies suicidal plan and denies suicidal intent Homicidal Thoughts: denies homicidal thoughts Hallucinations: + auditory hallucinations (reports lessening significantly); no visual hallucinations Cognition: recent memory grossly intact, remote memory grossly intact and language grossly intact; + attention not intact Estimated Intelligence: consistent with education level Insight: + fair insight Judgment: + limited judgement Vital Signs (Past 24 Hours) Last Vital Signs Temp 36.9 C 05/13/23 06:57 Pulse 90 05/13/23 06:57 Resp 16 05/13/23 06:57 BP 142/94 H 05/13/23 06:58 Pulse Ox 98 05/13/23 06:57 O2 Del Method Room Air 05/13/23 06:57 Results & Data ([facility]) Laboratory Results Laboratory Results - last 24 hr 05/13/23 07:26 Fasting Glucose 100 H Triglycerides 195 H Cholesterol 166 LDL Cholesterol, Calc 89 VLDL Cholesterol, Calc 39 H HDL Cholesterol 38 Cholesterol/HDL Ratio 4.4 Current Inpatient Medications Current Inpatient Medications: Current Inpatient Medications Acetaminophen (Acetaminophen 325 Mg Tab) 650 mg PO Q4H PRN PRN Reason: Headache or Minor Fever Stop: 06/09/23 21:01 Al Hydrox/Mg Hydrox/Simethicone (Aluminum/Magnesium Susp 30 Ml Udc) 30 ml PO Q4H PRN PRN Reason: GI Upset Stop: 06/09/23 21:01 Bismuth Subsalicylate (Bismuth Subsalicylate Liqd 236 Ml) 15 ml PO PRN PRN PRN Reason: Loose Stool Stop: 06/09/23 21:01 Hydroxyzine HCl (Hydroxyzine Hcl 25 Mg Tab) 50 mg PO HSZ PRN PRN Reason: Insomnia Stop: 06/09/23 21:01 Hydroxyzine HCl (Hydroxyzine Hcl 25 Mg Tab) 25 mg PO Q4H PRN PRN Reason: Anxiety Stop: 06/09/23 21:01 Magnesium Hydroxide (Magnesium Hydroxide Susp 30 Ml Udc) 30 ml PO DAILY PRN PRN Reason: Constipation Stop: 06/09/23 21:01 Paliperidone (Paliperidone 3 Mg Tabcr) 3 mg PO HS ANETA Stop: 06/10/23 21:59 Last Admin: 05/12/23 21:11 Dose: 3 mg Sodium Chloride (Sodium Chloride 0.65% Na Soln 45 Ml ([place])) 1 - 2 sprays NA PRN PRN PRN Reason: Nasal Dryness/Congestion Stop: 06/09/23 21:01 Mental Health & Subst Abuse Tx Therapist [facility] Primary Care Physician Name Of Family Doctor/PCP: Denies
[2023-05-13] MEDS: PALIPERIDONE 3 MG TABCR PO SCH (21:06)
--- NOTE | 2023-05-14 09:03 | Psychiatric Progress Note ---
Date of Service May 14, 2023 Impression / Recommendations Impression Agree with assessment per Dr. 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 He has a long history of psychosis and mood symptoms. These were under good control on risperidone, but he cut the dose due to weight gain and reports no current benefit at all. He's very depressed and anxious, and is experiencing a constant negative commentary on his actions and voices telling him others would be better off if he were . He finds this frightening and ego-dystonic and denies any suicidal intent or plan. 05/14/2023: Tolerated the Invega well last night without any side effects and no longer experiencing any auditory hallucinations or SI. Discussed option for Invega THOMAS, he's not interested in this, prefers the po version. Discussed sometimes Invega can have high cost with insurance so script sent early to pharmacy in effort to ensure affordability after discharge. Encouragingly less isolative to his room today, attended a few groups and reading in the main room. Overall, I spent a total of 35 minutes with this case including review of chart records, direct evaluation of the patient at bedside, counseling the patient, discussion during interdisciplinary treatment rounds, risk assessment, and documentation in the electronic health record. (1) Schizoaffective disorder, bipolar type: Plan 05/14/2023: Continue current medications and tx plan. 05/13/2023: Continue current medications and tx plan. 05/12/2023: Continue current medications and tx plan. Fasting lipid panel and glucose in AM given use of Invega. 05/11/2023: The patient was admitted to the [facility] on q15 minute checks (behavioral with suicide precautions) for safety.The patient will participate in group, recreational, and milieu therapies and will be offered additional individual and family sessions as clinically appropriate. * stop risperidone * start paliperidone 3 mg QHS Inventory Assets Strengths: supportive relationships, voluntary, intelligent employed, Needs: safety and stabilization, medication adjustment, additional coping skills Suicide Risk Level Suicide Risk Level: Moderate (q15 min suicide checks) (periods of command AH to kill himself prior to admission but these have now resolved and he feels comfortable alerting staff if these resume or intensify or if he feels unable to remain safe, currently denies any AH ) Suicide Risk Level Comments: s Risk Factors Assessment Male: Yes : Yes Do You Have Access To A Gun?: No Health Problems: No Mental Health Diagnoses: Yes Previous Psychiatric Hospitalization: Yes Protective Factors Assessment : No Responsible for Young Children: No Employed: Yes Supportive Family: Yes Interval History Identifying Information MARCELO DRAPER is a 43-year-old M who currently lives in [place] usually alone, but whose parents have been staying with him due to their concerns about him with a history of schizoaffective disorder, and was admitted on 05/10/23 19:39 on a 201 voluntary commitment for suicidal command auditory hallucinations. Chief Complaint "Fine". Review of Systems Sleep Information Total Hours of Sleep: 8.5 Meal Information Percent Meal Consumed - Breakfast: 100 Percent Meal Consumed - Lunch: 100 Percent Meal Consumed - Dinner: 100 Subjective Subjective Patient was seen & assessed and interval progress reviewed with treatment team nursing and social work. Visited with his parents who felt he was looking more like himself. Today attended his first groups. Remains very reserved but spent some time in the main room reading an engineering textbook. No abdominal pain last evening with Invega dose. He denies any voices today nor commands to harm himself nor SI. Feels the Invega is helping a lot. Hopeful for discharge soon. Physical Exam Psychiatric Orientation: alert and oriented x 3 Apperance: appropriately dressed and appropriately groomed Eye Contact: good eye contact Motor Behavior: no abnormal motor movements Speech: normal rate/rhythm/volume of speech (quiet) Affect: + constricted affect Mood: no depressed mood and no anxious mood Thought Process: + concrete thought process Thought Content: reality based without delusions Suicidal Thoughts: denies suicidal thoughts, denies suicidal plan and denies suicidal intent Homicidal Thoughts: denies homicidal thoughts Hallucinations: no auditory hallucinations and no visual hallucinations Cognition: recent memory grossly intact, remote memory grossly intact, attention grossly intact and language grossly intact Estimated Intelligence: consistent with education level Insight: + fair insight Judgment: + fair judgement Vital Signs (Past 24 Hours) Last Vital Signs Temp 37.1 C 05/14/23 06:36 Pulse 94 H 05/14/23 06:36 Resp 16 05/14/23 06:36 BP 144/91 H 05/14/23 06:36 Pulse Ox 98 05/13/23 06:57 O2 Del Method Room Air 05/13/23 06:57 Results & Data ([facility]) Current Inpatient Medications Current Inpatient Medications: Current Inpatient Medications Acetaminophen (Acetaminophen 325 Mg Tab) 650 mg PO Q4H PRN PRN Reason: Headache or Minor Fever Stop: 06/09/23 21:01 Al Hydrox/Mg Hydrox/Simethicone (Aluminum/Magnesium Susp 30 Ml Udc) 30 ml PO Q4H PRN PRN Reason: GI Upset Stop: 06/09/23 21:01 Bismuth Subsalicylate (Bismuth Subsalicylate Liqd 236 Ml) 15 ml PO PRN PRN PRN Reason: Loose Stool Stop: 06/09/23 21:01 Hydroxyzine HCl (Hydroxyzine Hcl 25 Mg Tab) 50 mg PO HSZ PRN PRN Reason: Insomnia Stop: 06/09/23 21:01 Hydroxyzine HCl (Hydroxyzine Hcl 25 Mg Tab) 25 mg PO Q4H PRN PRN Reason: Anxiety Stop: 06/09/23 21:01 Magnesium Hydroxide (Magnesium Hydroxide Susp 30 Ml Udc) 30 ml PO DAILY PRN PRN Reason: Constipation Stop: 06/09/23 21:01 Paliperidone (Paliperidone 3 Mg Tabcr) 3 mg PO HS ANETA Stop: 06/10/23 21:59 Last Admin: 05/13/23 21:06 Dose: 3 mg Sodium Chloride (Sodium Chloride 0.65% Na Soln 45 Ml ([place])) 1 - 2 sprays NA PRN PRN PRN Reason: Nasal Dryness/Congestion Stop: 06/09/23 21:01 Mental Health & Subst Abuse Tx Therapist Name of Therapist: Shagufta Martel [facility] Post Discharge Appointments Primary Care Physician Name Of Family Doctor/PCP: Denies
[2023-05-14] MEDS: PALIPERIDONE 3 MG TABCR PO SCH (21:18)
--- NOTE | 2023-05-15 09:04 | Discharge Summary ---
Date of Service May 15, 2023 History of Present Illness As part of a thorough review of the available medical records, I have read and confirmed the following note by the ED physician: "43-year-old female [sic] presents emergency department with complaint of auditory hallucinations that started over the past few weeks. Patient was supposed to be on Risperdal. Patient states that the auditory voices are telling him mean things. Patient states he is not currently suicidal or homicidal. Patient denies any alcohol or drug ingestion. Patient has a history of the same." and the following note by the ED psychiatric major case detective: "Patient present flat, reporting disorganized thought process, minimally responding to questions and occasional irritation. For the past few weeks, patient has been experiencing command hallucination with the voices saying everybody would be better off if you kill yourself. At this time, patient denies acting out on these thoughts yet or developing a plan. Prior to arrival, patient was seen at his outpatient provider at [facility] and she recommended that patient present to the ED for further evaluation. Patient is prescribed Risperdal, but cut his dose in half, on his own volition and not recommended by his medication management provider. Patient was unable to articulate why he decided to cut his dosage. 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 Patient reports depressive symptoms as social withdrawal, anhedonia, lack of motivation, decreased appetite, loss of daily functioning, feelings of helpless/hopelessness, decreased concentration and decreased sleep of 5-6 hours of broken sleep. Patient described severe anxiety on most days with symptoms of sweating, excessive worry, sleep disturbance and heart palpitations. Patient reports rarely drinking alcohol and denying drug or tobacco use. Patient lives in an apartment with his parents. Patient reports previous psychiatric admissions to include [facility] and [facility]. Patient acknowledges he is struggling and knows when he needs inpatient help and is voluntary for treatment" Review of the medical record reveals no previous or outside psychiatric records, despite his report of having been admitted here before. He appears to carry a diagnosis of schizoaffective disorder. Review of pertinent labs reveals they are noncontributory. A urine toxicology screen was negative for all tested substrates. BAL was <10 mg/dL. Pt reports chronic voices for many years. These seem to be female and often take the form of inaudible whispers but which at times make a running, derogatory comment on everything he does. He says he's been admitted numerous times for this including here, but records of any admissions do not appear in the EHR. He says he's supposed to be taking risperidone 3 mg BID prescribed at [place] and that at that dose the voices are barely noticeable. However, he's experienced significant weight gain and has reduced the dose to 1.5 mg once a day without having told his prescriber. Since that change the voices have recurred and have been telling him that he's useless and others would be better off if he were to kill himself. He's felt very depressed, and has withdrawn from his already scant social life. He has lost interest, has no energy or motivation, reports initial and middle insomnia, has reduced appetite and has "pretty much stopped doing everything". He has felt very anxious with some episodic panic symptoms. Physical Exam Vital Signs (Past 24 Hours) Last Vital Signs Temp 37 C 05/15/23 06:41 Pulse 101 H 05/15/23 06:42 Resp 16 05/15/23 06:41 BP 135/92 05/15/23 06:42 Pulse Ox 98 05/13/23 06:57 O2 Del Method Room Air 05/13/23 06:57 Psychiatric Data See daily stay summary. In short, safety was maintained and the patient was cooperative with care. Medication changes included [] and they tolerated this well. A family session was [held] and safety plan was completed prior to discharge. Day of Discharge Assessment Today the patient voices readiness for discharge. They note improvement in mood and deny thoughts to harm self or others. Thoughts remain organized and they are improved from admission. There is no evidence of psychosis. They agree to take mediations as prescribed and keep follow-up appointments. They are stable for discharge to outpatient level of care. Advance Directives Advance Directives Information Provided: Yes Advance Directives: No Mental Health Advance Directive: No Advance Directives on File: No Living Will: No Power of Clay [employer] Helper: No Advance Directives Reason:: Declines as Mental Health Visit. Suicide Risk Level Suicide Risk Level Comments: s Risk Factors Assessment Male: Yes : Yes Do You Have Access To A Gun?: No Health Problems: No Mental Health Diagnoses: Yes Previous Psychiatric Hospitalization: Yes Protective Factors Assessment : No Responsible for Young Children: No Employed: Yes Supportive Family: Yes Discharge Data Lab Results 05/10/23 05/10/23 05/10/23 11:39 11:39 11:39 WBC 8.27 RBC 5.16 Hgb 15.9 Hct 46.6 MCV 90.3 MCH 30.8 MCHC 34.1 RDW Std Deviation 42.2 RDW Coeff of Daria 12.7 Plt Count 255 MPV 10.4 Immature Gran % (Auto) 0.2 Neut % (Auto) 69.8 Lymph % (Auto) 22.1 Sandoval % (Auto) 7.3 Eos % (Auto) 0.4 Baso % (Auto) 0.2 Neut # (Auto) 5.77 Lymph # (Auto) 1.83 Sandoval # (Auto) 0.60 H Eos # (Auto) 0.03 Baso # (Auto) 0.02 Immature Gran # (Auto) 0.02 Sodium 136 Potassium 4.0 Chloride 104 Carbon Dioxide 23 Anion Gap 9 BUN 14 Creatinine 1.01 Est Cr Clr Drug Dosing 117.9 Est GFR ( Amer) 105.1 Est GFR (Non-Af Amer) 90.7 BUN/Creatinine Ratio 13.9 Glucose 92 Fasting Glucose Calcium 10.0 Total Bilirubin 0.6 AST 30 ALT 57 H Alkaline Phosphatase 74 Total Protein 8.6 H Albumin 4.7 Globulin 3.9 Albumin/Globulin Ratio 1.2 Triglycerides Cholesterol LDL Cholesterol, Calc VLDL Cholesterol, Calc HDL Cholesterol Cholesterol/HDL Ratio TSH 2.330 Urine Color Urine Appearance Urine pH Ur Specific Bally Urine Protein Urine Glucose (UA) Urine Ketones Urine Blood Urine Nitrite Urine Bilirubin Urine Urobilinogen Ur Leukocyte Esterase Salicylates < 3.0 L Urine Opiates Screen Ur Methadone, Qual Acetaminophen < 3 L Urine Barbiturates Ur Phencyclidine (PCP) U Amphetamin/Meth Scrn MDMA (Ecstasy) Screen U Benzodiazepines Scrn Ur Cocaine Metabolite U Marijuana (THC) Screen Ethyl Alcohol mg/dL SARS-CoV-2, RNA, NAAT 05/10/23 05/10/23 05/10/23 11:39 11:39 11:39 WBC RBC Hgb Hct MCV MCH MCHC RDW Std Deviation RDW Coeff of Daria Plt Count MPV Immature Gran % (Auto) Neut % (Auto) Lymph % (Auto) Sandoval % (Auto) Eos % (Auto) Baso % (Auto) Neut # (Auto) Lymph # (Auto) Sandoval # (Auto) Eos # (Auto) Baso # (Auto) Immature Gran # (Auto) Sodium Potassium Chloride Carbon Dioxide Anion Gap BUN Creatinine Est Cr Clr Drug Dosing Est GFR ( Amer) Est GFR (Non-Af Amer) BUN/Creatinine Ratio Glucose Fasting Glucose Calcium Total Bilirubin AST ALT Alkaline Phosphatase Total Protein Albumin Globulin Albumin/Globulin Ratio Triglycerides Cholesterol LDL Cholesterol, Calc VLDL Cholesterol, Calc HDL Cholesterol Cholesterol/HDL Ratio TSH Urine Color Yellow Urine Appearance Clear Urine pH 7.0 Ur Specific Bally 1.016 Urine Protein Negative Urine Glucose (UA) Negative Urine Ketones Negative Urine Blood Negative Urine Nitrite Negative Urine Bilirubin Negative Urine Urobilinogen Negative Ur Leukocyte Esterase Negative Salicylates Urine Opiates Screen Ur Methadone, Qual Acetaminophen Urine Barbiturates Ur Phencyclidine (PCP) U Amphetamin/Meth Scrn MDMA (Ecstasy) Screen U Benzodiazepines Scrn Ur Cocaine Metabolite U Marijuana (THC) Screen Ethyl Alcohol mg/dL < 10.0 SARS-CoV-2, RNA, NAAT NEGATIVE 05/10/23 05/13/23 11:39 07:26 WBC RBC Hgb Hct MCV MCH MCHC RDW Std Deviation RDW Coeff of Daria Plt Count MPV Immature Gran % (Auto) Neut % (Auto) Lymph % (Auto) Sandoval % (Auto) Eos % (Auto) Baso % (Auto) Neut # (Auto) Lymph # (Auto) Sandoval # (Auto) Eos # (Auto) Baso # (Auto) Immature Gran # (Auto) Sodium Potassium Chloride Carbon Dioxide Anion Gap BUN Creatinine Est Cr Clr Drug Dosing Est GFR ( Amer) Est GFR (Non-Af Amer) BUN/Creatinine Ratio Glucose Fasting Glucose 100 H Calcium Total Bilirubin AST ALT Alkaline Phosphatase Total Protein Albumin Globulin Albumin/Globulin Ratio Triglycerides 195 H Cholesterol 166 LDL Cholesterol, Calc 89 VLDL Cholesterol, Calc 39 H HDL Cholesterol 38 Cholesterol/HDL Ratio 4.4 TSH Urine Color Urine Appearance Urine pH Ur Specific Bally Urine Protein Urine Glucose (UA) Urine Ketones Urine Blood Urine Nitrite Urine Bilirubin Urine Urobilinogen Ur Leukocyte Esterase Salicylates Urine Opiates Screen Neg Ur Methadone, Qual Neg Acetaminophen Urine Barbiturates Neg Ur Phencyclidine (PCP) Neg U Amphetamin/Meth Scrn Neg MDMA (Ecstasy) Screen Neg U Benzodiazepines Scrn Neg Ur Cocaine Metabolite Neg U Marijuana (THC) Screen Neg Ethyl Alcohol mg/dL SARS-CoV-2, RNA, NAAT Hospital Course (1) Schizoaffective disorder, bipolar type: Plan 05/14/2023: Continue current medications and tx plan. 05/13/2023: Continue current medications and tx plan. 05/12/2023: Continue current medications and tx plan. Fasting lipid panel and glucose in AM given use of Invega. 05/11/2023: The patient was admitted to the [facility]) on q15 minute checks (behavioral with suicide precautions) for safety.The patient will participate in group, recreational, and milieu therapies and will be offered additional individual and family sessions as clinically appropriate. * stop risperidone * start paliperidone 3 mg QHS Mental Health & Subst Abuse Tx Therapist Name of Therapist: [facility] Post Discharge Appointments Primary Care Physician Name Of Family Doctor/PCP: Denies Discharge Plan Discharge Items Reason For Visit: PSYCHOTIC DISORDER Follow-up/Referrals: PCP,NO [Primary Care Provider] - Medications and DC Order Prescriptions: New paliperidone [Invega] 3 mg Tablet Extended Release 24 Hr 3 mg PO HS 30 Days Qty: 30 0RF Discontinued risperidone 3 mg tablet 3 mg PO HS Admission Data Admit Date/Time: 05/10/23 19:39 Attending Provider: Joanne Zuleta Admit Provider: Hernan Sarabia Primary Care Provider: PCP,NO Coding Diagnoses Schizoaffective disorder, bipolar type F25.0
--- NOTE | 2023-05-15 10:39 | Psychiatric Progress Note ---
Date of Service May 15, 2023 Impression / Recommendations Impression Agree with assessment per Dr. 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 He has a long history of psychosis and mood symptoms. These were under good control on risperidone, but he cut the dose due to weight gain and reports no current benefit at all. He's very depressed and anxious, and is experiencing a constant negative commentary on his actions and voices telling him others would be better off if he were . He finds this frightening and ego-dystonic and denies any suicidal intent or plan. 05/15/2023: Voices worsened significantly last evening and much more tearful and distressed by voices today. Agrees to increasing Invega to further target his symptoms. Overall, I spent a total of 35 minutes with this case including review of chart records, direct evaluation of the patient at bedside, counseling the patient, discussion during interdisciplinary treatment rounds, risk assessment, and documentation in the electronic health record. (1) Schizoaffective disorder, bipolar type: Inventory Assets Strengths: supportive relationships, voluntary, intelligent employed, Needs: safety and stabilization, medication adjustment, additional coping skills Suicide Risk Level Suicide Risk Level: Moderate (q15 min suicide checks) (periods of command AH to kill himself prior to admission, increased voices today with tearfulness but he feels comfortable alerting staff if he develops command AH or if he feels unable to remain safe, currently denies any AH ) Risk Factors Assessment Male: Yes : Yes Do You Have Access To A Gun?: No Health Problems: No Mental Health Diagnoses: Yes Previous Psychiatric Hospitalization: Yes Protective Factors Assessment : No Responsible for Young Children: No Employed: Yes Supportive Family: Yes Interval History Identifying Information MARCELO DRAPER is a 43-year-old M who currently lives in [place] usually alone, but whose parents have been staying with him due to their concerns about him with a history of schizoaffective disorder, and was admitted on 05/10/23 19:39 on a 201 voluntary commitment for suicidal command auditory hallucinations. Chief Complaint "They tell me I'm an idiot and stupid in [place]". Review of Systems Sleep Information Total Hours of Sleep: 7 Meal Information Percent Meal Consumed - Breakfast: 100 Percent Meal Consumed - Lunch: 100 Percent Meal Consumed - Dinner: 100 Subjective Subjective Patient was seen & assessed and interval progress reviewed with treatment team nursing and social work. Had family meeting this morning and was significantly more thought blocked and acknowledged that the voices are still talking to him and telling him things like to harm himself and taunting him. He says the voices really increased last night and were talking repeatedly to him. He was crying during the meeting due to the distress from the voices. His mother agreed that he looked much worse compared to this weekend. Later in the day denies any voices telling him to hurt himself but they did so yesterday evening by telling him pens are sharp but he could ignore this/put it out of his mind. The voices are telling him mean things and derogatory comments which is very upsetting. Physical Exam Psychiatric Orientation: alert and oriented x 3 Apperance: appropriately dressed and appropriately groomed Eye Contact: + fair eye contact Motor Behavior: no abnormal motor movements Speech: + abnormal rate/rhythm/volume of speech (quiet, brief) Affect: + tearful affect and + constricted affect Mood: + depressed mood and + anxious mood Thought Process: + concrete thought process Thought Content: reality based without delusions Suicidal Thoughts: denies suicidal thoughts, denies suicidal plan and denies suicidal intent Homicidal Thoughts: denies homicidal thoughts Hallucinations: + auditory hallucinations (significant increase of the voices); no visual hallucinations Cognition: recent memory grossly intact, remote memory grossly intact and language grossly intact; + attention not intact Estimated Intelligence: consistent with education level Insight: + limited insight Judgment: + limited judgement Vital Signs (Past 24 Hours) Last Vital Signs Temp 37 C 05/15/23 10:02 Pulse 78 05/15/23 10:02 Resp 16 05/15/23 10:02 BP 156/96 H 05/15/23 10:02 Pulse Ox 98 05/15/23 10:02 O2 Del Method Room Air 05/13/23 06:57 Results & Data ([facility]) Current Inpatient Medications Current Inpatient Medications: Current Inpatient Medications Acetaminophen (Acetaminophen 325 Mg Tab) 650 mg PO Q4H PRN PRN Reason: Headache or Minor Fever Stop: 06/09/23 21:01 Al Hydrox/Mg Hydrox/Simethicone (Aluminum/Magnesium Susp 30 Ml Udc) 30 ml PO Q4H PRN PRN Reason: GI Upset Stop: 06/09/23 21:01 Bismuth Subsalicylate (Bismuth Subsalicylate Liqd 236 Ml) 15 ml PO PRN PRN PRN Reason: Loose Stool Stop: 06/09/23 21:01 Hydroxyzine HCl (Hydroxyzine Hcl 25 Mg Tab) 50 mg PO HSZ PRN PRN Reason: Insomnia Stop: 06/09/23 21:01 Hydroxyzine HCl (Hydroxyzine Hcl 25 Mg Tab) 25 mg PO Q4H PRN PRN Reason: Anxiety Stop: 06/09/23 21:01 Magnesium Hydroxide (Magnesium Hydroxide Susp 30 Ml Udc) 30 ml PO DAILY PRN PRN Reason: Constipation Stop: 06/09/23 21:01 Paliperidone (Paliperidone 3 Mg Tabcr) 3 mg PO HS ANETA Stop: 06/10/23 21:59 Last Admin: 05/14/23 21:18 Dose: 3 mg Sodium Chloride (Sodium Chloride 0.65% Na Soln 45 Ml ([place])) 1 - 2 sprays NA PRN PRN PRN Reason: Nasal Dryness/Congestion Stop: 06/09/23 21:01 Mental Health & Subst Abuse Tx Therapist Name of Therapist: Shagufta [facility] Post Discharge Appointments Primary Care Physician Name Of Family Doctor/PCP: Denies Contact Information Discharge Discharge Address: [address] [facility] [address] [place] [address]
[2023-05-15] MEDS ORDERED: PALIPERIDONE 1.5 MG TABCR PO PRN (10:45)
[2023-05-15] MEDS ORDERED: PALIPERIDONE 3 MG TABCR PO SCH (22:00)
--- NOTE | 2023-05-16 09:04 | Psychiatric Progress Note ---
Date of Service May 16, 2023 Impression / Recommendations Impression Agree with assessment per Dr. 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 He has a long history of psychosis and mood symptoms. These were under good control on risperidone, but he cut the dose due to weight gain and reports no current benefit at all. He's very depressed and anxious, and is experiencing a constant negative commentary on his actions and voices telling him others would be better off if he were . He finds this frightening and ego-dystonic and denies any suicidal intent or plan. 05/16/2023: Ongoing psychosis with increased auditory hallucinations, now starting to be able to express more of his distress, tearful and discusses voices threatening him and acknowledges SI due to this. Reviewed option to continue with INvega vs trial of an alternative antipsychotic. He consents to trial of abilify for schizoaffective disorder. Discussed medication treatment options in detail. Discussed risks, benefits and alternatives. Reviewed side effects including but not limited to: movement (TD, NMS), cardiac (QTc prolongation), and metabolic (stroke, insulin resistance) and necessity for routine fasting lipid and glucose labwork and AIMS done with score of 0. Overall, I spent a total of 35 minutes with this case including review of chart records, direct evaluation of the patient at bedside, counseling the patient, discussion during interdisciplinary treatment rounds, risk assessment, and documentation in the electronic health record. (1) Schizoaffective disorder, bipolar type: Plan 05/16/2023: * Discontinue Invega * Start abilify 10mg HS, 5mg qAM tomorrow and 2.5mg BID prn for hallucinations/psychosis 05/15/2023: Increase Invega to 6mg HS po with Invega 1.5mg BID prn for voices/distress from hallucinations 05/14/2023: Continue current medications and tx plan. 05/13/2023: Continue current medications and tx plan. 05/12/2023: Continue current medications and tx plan. Fasting lipid panel and glucose in AM given use of Invega. 05/11/2023: The patient was admitted to the [facility] ([facility] unit) on q15 minute checks (behavioral with suicide precautions) for safety.The patient will participate in group, recreational, and milieu therapies and will be offered additional individual and family sessions as cl inically appropriate. * stop risperidone * start paliperidone 3 mg QHS Inventory Assets Strengths: supportive relationships, voluntary, intelligent employed, Needs: safety and stabilization, medication adjustment, additional coping skills Suicide Risk Level Suicide Risk Level: High-Moderate (q15 min suicide checks) (periods of command AH to kill himself prior to admission, increased voices today with tearfulness, SI and increased depression but he feels comfortable alerting staff if he develops command AH or if he feels unable to remain safe, currently denies any AH ) Risk Factors Assessment Male: Yes : Yes Do You Have Access To A Gun?: No Health Problems: No Mental Health Diagnoses: Yes Previous Psychiatric Hospitalization: Yes Protective Factors Assessment : No Responsible for Young Children: No Employed: Yes Supportive Family: Yes Interval History Identifying Information MARCELO DRAPER is a 43-year-old M who currently lives in [place] usually alone, but whose parents have been staying with him due to their concerns about him with a history of schizoaffective disorder, and was admitted on 05/10/23 19:39 on a 201 voluntary commitment for suicidal command auditory hallucinatio ns. Chief Complaint "I just don't feel anything". Review of Systems Sleep Information Total Hours of Sleep: 6.5 Meal Information Percent Meal Consumed - Breakfast: 100 Percent Meal Consumed - Lunch: 100 Percent Meal Consumed - Dinner: 100 Subjective Subjective Patient was seen & assessed and interval progress reviewed with treatment team nursing and social work. Tearful most of the evening. He used headphones which helped a bit. He thought people on the 4th floor above were talking about him even after attempts to reality-test with him. Today reports ongoing voices though they are slightly less intense today compared with yesterday. He is tearful noting it sounds like the voice is yelling at him from the floor above or the ceiling of the shower and that he cannot tell what is real. Speaks of feeling nothing and says the suicidal ideation prior to admission were his own thoughts not just the voice. Earlier in the day thought there might be a recording device in his room, said he couldn't tell when hearing the voice from the floor above if "it was trick being played on me here". Tearful in describing that he also didn't like that the risperidone causes his thinking to be slow and makes it harder to do his job noting prior advisor who called him "stupid". Physical Exam Psychiatric Orientation: alert and oriented x 3 Apperance: appropriately dressed and appropriately groomed Eye Contact: + fair eye contact Motor Behavior: no abnormal motor movements Speech: + abnormal rate/rhythm/volume of speech (quiet, brief) Affect: + depressed affect and + tearful affect Mood: + depressed mood and + anxious mood Thought Process: + concrete thought process Thought Content: + paranoid, + thought broadcasting and + hopelessness Suicidal Thoughts: denies suicidal plan and denies suicidal intent; + reports suicidal thoughts (intermittent) Homicidal Thoughts: denies homicidal thoughts Hallucinations: + auditory hallucinations (significant increase of the voices); no visual hallucinations Cognition: recent memory grossly intact, remote memory grossly intact and language grossly intact; + attention not intact Estimated Intelligence: consistent with education level Insight: + limited insight Judgment: + limited judgement Vital Signs (Past 24 Hours) Last Vital Signs Temp 36.6 C 05/16/23 06:41 Pulse 106 H 05/16/23 06:41 Resp 16 05/16/23 06:41 BP 130/89 05/16/23 06:41 Pulse Ox 98 05/15/23 10:02 O2 Del Method Room Air 05/13/23 06:57 Results & Data ([facility]) Current Inpatient Medications Current Inpatient Medications: Current Inpatient Medications Acetaminophen (Acetaminophen 325 Mg Tab) 650 mg PO Q4H PRN PRN Reason: Headache or Minor Fever Stop: 06/09/23 21:01 Al Hydrox/Mg Hydrox/Simethicone (Aluminum/Magnesium Susp 30 Ml Udc) 30 ml PO Q4H PRN PRN Reason: GI Upset Stop: 06/09/23 21:01 Bismuth Subsalicylate (Bismuth Subsalicylate Liqd 236 Ml) 15 ml PO PRN PRN PRN Reason: Loose Stool Stop: 06/09/23 21:01 Hydroxyzine HCl (Hydroxyzine Hcl 25 Mg Tab) 50 mg PO HSZ PRN PRN Reason: Insomnia Stop: 06/09/23 21:01 Hydroxyzine HCl (Hydroxyzine Hcl 25 Mg Tab) 25 mg PO Q4H PRN PRN Reason: Anxiety Stop: 06/09/23 21:01 Magnesium Hydroxide (Magnesium Hydroxide Susp 30 Ml Udc) 30 ml PO DAILY PRN PRN Reason: Constipation Stop: 06/09/23 21:01 Paliperidone (Paliperidone 3 Mg Tabcr) 6 mg PO HS ANETA Stop: 06/14/23 21:59 Last Admin: 05/15/23 21:24 Dose: 6 mg Paliperidone (Paliperidone 1.5 Mg Tabcr) 1.5 mg PO BID PRN PRN Reason: hallucinations/distress from v Stop: 06/14/23 10:44 Sodium Chloride (Sodium Chloride 0.65% Na Soln 45 Ml ([place])) 1 - 2 sprays NA PRN PRN PRN Reason: Nasal Dryness/Congestion Stop: 06/09/23 21:01 Mental Health & Subst Abuse Tx Therapist Name of Therapist: [facility] Post Discharge Appointments Primary Care Physician Name Of Family Doctor/PCP: Denies Contact Information Discharge Discharge Address: [address] [place] [address] [address] [place] [address]
[2023-05-16] MEDS ORDERED: ARIPiprazole 5 MG TAB PO PRN (16:13)
[2023-05-16] MEDS ORDERED: ARIPiprazole 10 MG TAB PO SCH (22:00)
[2023-05-17] MEDS ORDERED: ARIPiprazole 5 MG TAB PO SCH (09:00)
--- NOTE | 2023-05-17 10:26 | Psychiatric Progress Note ---
Date of Service May 17, 2023 Impression / Recommendations Impression Agree with assessment per Dr. 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 He has a long history of psychosis and mood symptoms. These were under good control on risperidone, but he cut the dose due to weight gain and reports no current benefit at all. He's very depressed and anxious, and is experiencing a constant negative commentary on his actions and voices telling him others would be better off if he were . He finds this frightening and ego-dystonic and denies any suicidal intent or plan. MNPR due to acute psychosis, paranoia 05/17/2023: Ongoing psychosis with increased auditory hallucinations and paranoia this morning, didn't respond well to abolify trial, had some relief with haldol. He consents to switching to haldol. Reviewed side effects including but not limited to: movement (TD, NMS, acute dystonia/EPS), cardiac (QTc prolongation), and metabolic (stroke, insulin resistance) and necessity for routine fasting lipid and glucose labwork and AIMS done with score of 0. Overall, I spent a total of 35 minutes with this case including review of chart records, direct evaluation of the patient at bedside, counseling the patient, discussion during interdisciplinary treatment rounds, risk assessment, and documentation in the electronic health record. (1) Schizoaffective disorder, bipolar type: Plan 05/17/2023: * Discontinue abilify * Start haldol 2.5mg qAM and 5mg HS and 5mg BID prn for hallucinations 05/16/2023: * Discontinue Invega * Start abilify 10mg HS, 5mg qAM tomorrow and 2.5mg BID prn for hallucinations/psychosis 05/15/2023: Increase Invega to 6mg HS po with Invega 1.5mg BID prn for voices/distress from hallucinations 05/14/2023: Continue current medications and tx plan. 05/13/2023: Continue current medications and tx plan. 05/12/2023: Continue current medications and tx plan. Fasting lipid panel and glucose in AM given use of Invega. 05/11/2023: The patient was admitted to the [facility] ([facility] mental health unit) on q15 minute checks (behavioral with suicide precautions) for safety.The patient will participate in group, recreational, and milieu therapies and will be offered additional individual and family sessions as clinically appropriate. * stop risperidone * start paliperidone 3 mg QHS Inventory Assets Strengths: supportive relationships, voluntary, intelligent employed, Needs: safety and stabilization, medication adjustment, additional coping skills Suicide Risk Level Suicide Risk Level: High-Moderate (q15 min suicide checks) (periods of command AH to kill himself prior to admission, increased voices today with tearfulness, SI and increased depression but he feels comfortable alerting staff if he develops command AH or if he feels unable to remain safe, currently denies any AH ) Risk Factors Assessment Male: Yes : Yes Do You Have Access To A Gun?: No Health Problems: No Mental Health Diagnoses: Yes Previous Psychiatric Hospitalization: Yes Protective Factors Assessment : No Responsible for Young Children: No Employed: Yes Supportive Family: Yes Interval History Identifying Information MARCELO DRAPER is a 43-year-old M who currently lives in [place] usually alone, but whose parents have been staying with him due to their concerns about him with a history of schizoaffective disorder, and was admitted on 05/10/23 19:39 on a 201 voluntary commitment for suicidal command auditory hallucinations. Chief Complaint "That pill is helping". Review of Systems Sleep Information Total Hours of Sleep: 7 Meal Information Percent Meal Consumed - Breakfast: 100 Percent Meal Consumed - Lunch: 100 Percent Meal Consumed - Dinner: 100 Subjective Subjective Patient was seen & assessed and interval progress reviewed with treatment team nursing and social work. He doesn't feel like the abilify helped at all. He asked for a prn dose of abilify this morning. Paranoid thinking staff may be messing with him. Thought another patient called him stupid. Seemed very distressed but then agreed to dose of prn haldol which seemed to offer significant relief. Still with some paranoia and appeared to be responding to internal stimuli but reported reduction of voices and was able to attend a few groups. Agreed to start scheduled haldol. Physical Exam Psychiatric Orientation: alert, oriented x 3 and + guarded Apperance: appropriately dressed and appropriately groomed Eye Contact: + fair eye contact (blinks rapidly at times) Motor Behavior: no abnormal motor movements Speech: + abnormal rate/rhythm/volume of speech (quiet, brief) Affect: + depressed affect and + irritable affect Mood: + depressed mood and + anxious mood Thought Process: + concrete thought process Thought Content: + paranoid, + delusions, + thought broadcasting and + hopelessness Suicidal Thoughts: denies suicidal plan and denies suicidal intent; + reports suicidal thoughts (intermittent) Homicidal Thoughts: denies homicidal thoughts Hallucinations: + auditory hallucinations (significant increase of the voices); no visual hallucinations Cognition: recent memory grossly intact, remote memory grossly intact and language grossly intact; + attention not intact Estimated Intelligence: consistent with education level Insight: + limited insight Judgment: + limited judgement Vital Signs (Past 24 Hours) Last Vital Signs Temp 36.2 C L 05/17/23 06:31 Pulse 91 H 05/17/23 06:31 Resp 12 05/17/23 06:31 BP 138/81 05/17/23 06:31 Pulse Ox 98 05/17/23 06:31 O2 Del Method Room Air 05/17/23 06:31 Results & Data ([facility]) Current Inpatient Medications Current Inpatient Medications: Current Inpatient Medications Acetaminophen (Acetaminophen 325 Mg Tab) 650 mg PO Q4H PRN PRN Reason: Headache or Minor Fever Stop: 06/09/23 21:01 Al Hydrox/Mg Hydrox/Simethicone (Aluminum/Magnesium Susp 30 Ml Udc) 30 ml PO Q4H PRN PRN Reason: GI Upset Stop: 06/09/23 21:01 Aripiprazole (Aripiprazole 5 Mg Tab) 5 mg PO QAM ANETA Stop: 06/16/23 08:59 Last Admin: 05/17/23 07:29 Dose: 5 mg Aripiprazole (Aripiprazole 10 Mg Tab) 10 mg PO HS ANETA Stop: 06/15/23 21:59 Last Admin: 05/16/23 21:53 Dose: 10 mg Aripiprazole (Aripiprazole 5 Mg Tab) 2.5 mg PO BID PRN PRN Reason: hallucinations Stop: 06/15/23 16:12 Last Admin: 05/16/23 19:08 Dose: 2.5 mg Bismuth Subsalicylate (Bismuth Subsalicylate Liqd 236 Ml) 15 ml PO PRN PRN PRN Reason: Loose Stool Stop: 06/09/23 21:01 Hydroxyzine HCl (Hydroxyzine Hcl 25 Mg Tab) 50 mg PO HSZ PRN PRN Reason: Insomnia Stop: 06/09/23 21:01 Hydroxyzine HCl (Hydroxyzine Hcl 25 Mg Tab) 25 mg PO Q4H PRN PRN Reason: Anxiety Stop: 06/09/23 21:01 Magnesium Hydroxide (Magnesium Hydroxide Susp 30 Ml Udc) 30 ml PO DAILY PRN PRN Reason: Constipation Stop: 06/09/23 21:01 Sodium Chloride (Sodium Chloride 0.65% Na Soln 45 Ml ([place])) 1 - 2 sprays NA PRN PRN PRN Reason: Nasal Dryness/Congestion Stop: 06/09/23 21:01 Mental Health & Subst Abuse Tx Therapist Name of Therapist: Shagufta @[facility] Post Discharge Appointments Primary Care Physician Name Of Family Doctor/PCP: Denies Contact Information Discharge Discharge Address: [address] [place] [address]
[2023-05-17] MEDS: haloperidoL 5 MG TAB PO PRN (10:47)
[2023-05-17] MEDS ORDERED: BENZTROPINE MESYLATE 0.5 MG TAB PO PRN (12:16)
[2023-05-17] MEDS: haloperidoL 5 MG TAB PO SCH (21:56)
[2023-05-18] MEDS ORDERED: haloperidoL 0.5 MG TAB PO SCH (08:00)
[2023-05-18] MEDS: haloperidoL 5 MG TAB PO SCH ×2 (09:15→21:18)
--- NOTE | 2023-05-18 09:26 | Psychiatric Progress Note ---
Date of Service May 18, 2023 Impression / Recommendations Impression Agree with assessment per Dr. 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 He has a long history of psychosis and mood symptoms. These were under good control on risperidone, but he cut the dose due to weight gain and reports no current benefit at all. He's very depressed and anxious, and is experiencing a constant negative commentary on his actions and voices telling him others would be better off if he were . He finds this frightening and ego-dystonic and denies any suicidal intent or plan. MNPR due to acute psychosis, paranoia 05/18/2023: Psychosis improving with use of haldol but still demonstrating paranoia and periods of suspected thought blocking due to internal stimuli. Continues to have elevated BP but no side effects associated with this, discussed recommendation that PCP follow this overtime as he may benefit from antihypertensive if not due to white coat BP elevation as he suspects (home monitoring would help differentiate this). Continue to monitor his mood, he may benefit from low dose SSRI trial depending on how he responds to haldol trial. Overall, I spent a total of 35 minutes with this case including review of chart records, direct evaluation of the patient at bedside, counseling the patient, discussion during interdisciplinary treatment rounds, risk assessment, and documentation in the electronic health record. (1) Schizoaffective disorder, bipolar type: Plan 05/18/2023: * Continue haldol 2.5mg qAM and 5mg HS with 5mg BID prn for hallucinations * Consider future trial of SSRI if mood doesn't improve with haldol trial 05/17/2023: * Discontinue abilify * Start haldol 2.5mg qAM and 5mg HS and 5mg BID prn for hallucinations 05/16/2023: * Discontinue Invega * Start abilify 10mg HS, 5mg qAM tomorrow and 2.5mg BID prn for hallucinations/psychosis 05/15/2023: Increase Invega to 6mg HS po with Invega 1.5mg BID prn for voices/distress from hallucinations 05/14/2023: Continue current medications and tx plan. 05/13/2023: Continue current medications and tx plan. 05/12/2023: Continue current medications and tx plan. Fasting lipid panel and glucose in AM given use of Invega. 05/11/2023: The patient was admitted to the [facility] ([facility] mental health unit) on q15 minute checks (behavioral with suicide precautions) for safety.The patient will participate in group, recreational, and milieu therapies and will be offered additional individual and family sessions as clinically appropriate. * stop risperidone * start paliperidone 3 mg QHS Inventory Assets Strengths: supportive relationships, voluntary, intelligent employed, Needs: safety and stabilization, medication adjustment, additional coping skills Suicide Risk Level Suicide Risk Level: High-Moderate (q15 min suicide checks) (periods of command AH to kill himself prior to admission, voices lessening, still with depression but he feels comfortable alerting staff if he develops command AH or if he feels unable to remain safe, currently denies any AH ) Risk Factors Assessment Male: Yes : Yes Do You Have Access To A Gun?: No Health Problems: No Mental Health Diagnoses: Yes Previous Psychiatric Hospitalization: Yes Protective Factors Assessment : No Responsible for Young Children: No Employed: Yes Supportive Family: Yes Interval History Identifying Information MARCELO DRAPER is a 43-year-old M who currently lives in [place] usually alone, but whose parents have been staying with him due to their concerns about him with a history of schizoaffective disorder, and was admitted on 05/10/23 19:39 on a 201 voluntary commitment for suicidal command auditory hallucinations. Chief Complaint "I got some stuff off my chest which feels good". Review of Systems Sleep Information Total Hours of Sleep: 7 Meal Information Percent Meal Consumed - Breakfast: 100 Percent Meal Consumed - Lunch: 100 Percent Meal Consumed - Dinner: 100 Subjective Subjective Patient was seen & assessed and interval progress reviewed with treatment team nursing and social work. Attended evening group but did not speak. Still with some paranoia and at times seems distracted by possible internal stimuli but he denies any voices today. Reports benefit from the haldol and denies any side effects from this but also continues to report low mood, loneliness which he started to discuss with the manager social responsibility. He did not wish to discuss this with me but described to her his difficulty making friends, desire for a romantic relationship and concerns about inability to keep up mentally with his work and sense of feeling numb. Reported some issues with early awakening during sleep last night but no excessive fatigue today. Physical Exam Psychiatric Orientation: alert, oriented x 3 and + guarded Apperance: appropriately dressed and appropriately groomed Eye Contact: + fair eye contact (blinks rapidly at times) Motor Behavior: no abnormal motor movements Speech: + abnormal rate/rhythm/volume of speech (quiet, brief) Affect: + flat affect Mood: + depressed mood and + anxious mood Thought Process: + concrete thought process Thought Content: + paranoid, + delusions, + thought broadcasting and + hopelessness Suicidal Thoughts: denies suicidal plan and denies suicidal intent; + reports suicidal thoughts (intermittent, denies currently) Homicidal Thoughts: denies homicidal thoughts Hallucinations: + auditory hallucinations (lessening); no visual hallucinations Cognition: recent memory grossly intact, remote memory grossly intact and language grossly intact; + attention not intact Estimated Intelligence: consistent with education level Insight: + limited insight Judgment: + limited judgement Vital Signs (Past 24 Hours) Last Vital Signs Temp 36.6 C 05/18/23 06:00 Pulse 92 H 05/18/23 06:00 Resp 18 05/18/23 06:00 BP 149/93 H 05/18/23 06:38 Pulse Ox 98 05/18/23 06:00 O2 Del Method Room Air 05/18/23 06:00 Results & Data ([facility]) Current Inpatient Medications Current Inpatient Medications: Current Inpatient Medications Acetaminophen (Acetaminophen 325 Mg Tab) 650 mg PO Q4H PRN PRN Reason: Headache or Minor Fever Stop: 06/09/23 21:01 Al Hydrox/Mg Hydrox/Simethicone (Aluminum/Magnesium Susp 30 Ml Udc) 30 ml PO Q4H PRN PRN Reason: GI Upset Stop: 06/09/23 21:01 Benztropine Mesylate (Benztropine Mesylate 0.5 Mg Tab) 0.5 mg PO BID PRN PRN Reason: muscle stiffness Stop: 06/16/23 12:15 Bismuth Subsalicylate (Bismuth Subsalicylate Liqd 236 Ml) 15 ml PO PRN PRN PRN Reason: Loose Stool Stop: 06/09/23 21:01 Haloperidol (Haloperidol 5 Mg Tab) 5 mg PO BID PRN PRN Reason: hallucinations Stop: 06/16/23 10:25 Last Admin: 05/17/23 10:47 Dose: 5 mg Haloperidol (Haloperidol 5 Mg Tab) 5 mg PO HS ANETA Stop: 06/16/23 21:59 Last Admin: 05/17/23 21:56 Dose: 5 mg Haloperidol (Haloperidol 5 Mg Tab) 2.5 mg PO QD@08 ANETA Stop: 06/17/23 07:59 Last Admin: 05/18/23 09:15 Dose: 2.5 mg Hydroxyzine HCl (Hydroxyzine Hcl 25 Mg Tab) 50 mg PO HSZ PRN PRN Reason: Insomnia Stop: 06/09/23 21:01 Hydroxyzine HCl (Hydroxyzine Hcl 25 Mg Tab) 25 mg PO Q4H PRN PRN Reason: Anxiety Stop: 06/09/23 21:01 Magnesium Hydroxide (Magnesium Hydroxide Susp 30 Ml Udc) 30 ml PO DAILY PRN PRN Reason: Constipation Stop: 06/09/23 21:01 Sodium Chloride (Sodium Chloride 0.65% Na Soln 45 Ml ([place])) 1 - 2 sprays NA PRN PRN PRN Reason: Nasal Dryness/Congestion Stop: 06/09/23 21:01 Mental Health & Subst Abuse Tx Therapist Name of Therapist: Shagufta [facility] Post Discharge Appointments Primary Care Physician Name Of Family Doctor/PCP: Denies Contact Information Discharge Discharge Address: [address] [facility] [address] [place] [address]
[2023-05-18] MEDS: haloperidoL 5 MG TAB PO PRN (11:42)
[2023-05-19] MEDS: haloperidoL 5 MG TAB PO SCH ×2 (09:09→21:49)
--- NOTE | 2023-05-19 13:16 | Psychiatric Progress Note ---
Date of Service May 19, 2023 Impression / Recommendations Impression Agree with assessment per Dr. 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 He has a long history of psychosis and mood symptoms. These were under good control on risperidone, but he cut the dose due to weight gain and reports no current benefit at all. He's very depressed and anxious, and is experiencing a constant negative commentary on his actions and voices telling him others would be better off if he were . He finds this frightening and ego-dystonic and denies any suicidal intent or plan. MNPR due to acute psychosis, paranoia 05/19/2023: slow improvement, residual positive symptoms and seems like other complaints are related to negative symptoms rather than side effects of Haldol but will monitor tremor. Overall, I spent a total of 38 minutes with this case including review of chart records, direct evaluation of the patient at bedside, counseling the patient, discussion with nursing, and documentation in the electronic health record. (1) Schizoaffective disorder, bipolar type: Plan 05/19/2023: continue current meds and tx plan. Received prn Haldol yesterday so may need increase. He declines standing Cogentin trial for tremor. 05/18/2023: * Continue haldol 2.5mg qAM and 5mg HS with 5mg BID prn for hallucinations * Consider future trial of SSRI if mood doesn't improve with haldol trial 05/17/2023: * Discontinue abilify * Start haldol 2.5mg qAM and 5mg HS and 5mg BID prn for hallucinations 05/16/2023: * Discontinue Invega * Start abilify 10mg HS, 5mg qAM tomorrow and 2.5mg BID prn for hallucinations/psychosis 05/15/2023: Increase Invega to 6mg HS po with Invega 1.5mg BID prn for voices/distress from hallucinations 05/14/2023: Continue current medications and tx plan. 05/13/2023: Continue current medications and tx plan. 05/12/2023: Continue current medications and tx plan. Fasting lipid panel and glucose in AM given use of Invega. 05/11/2023: The patient was admitted to the [facility] (locked inpatient mental health unit) on q15 minute checks (behavioral with suicide precautions) for safety.The patient will participate in group, recreational, and milieu therapies and will be offered additional individual and family sessions as clinically appropriate. * stop risperidone * start paliperidone 3 mg QHS Inventory Assets Strengths: supportive relationships, voluntary, intelligent employed, Needs: safety and stabilization, medication adjustment, additional coping skills Suicide Risk Level Suicide Risk Level: High-Moderate (q15 min suicide checks) Risk Factors Assessment Male: Yes : Yes Do You Have Access To A Gun?: No Health Problems: No Mental Health Diagnoses: Yes Previous Psychiatric Hospitalization: Yes Protective Factors Assessment : No Responsible for Young Children: No Employed: Yes Supportive Family: Yes Interval History Identifying Information MARCELO DRAPER is a 43-year-old M who currently lives in [place] usually alone, but whose parents have been staying with him due to their concerns about him with a history of schizoaffective disorder, and was admitted on 05/10/23 19:39 on a 201 voluntary commitment for suicidal command auditory hallucinations. Chief Complaint "I had some tremors, better now". Review of Systems Sleep Information Total Hours of Sleep: 8.5 Meal Information Percent Meal Consumed - Breakfast: 100 Percent Meal Consumed - Lunch: 100 Percent Meal Consumed - Dinner: 100 Subjective Subjective Patient was seen & assessed and interval progress reviewed with nursing. Patient had some shakes when picked up paper at bedside first thing this am, otherwise improved. Currently denies hallucinations. Staff can tell as twitches eyes but no abnormal motor movements currently. Was able to participate in groups last pm. says he can't retain information when tries to read. Physical Exam Psychiatric Orientation: alert and cooperative Apperance: appropriately dressed and appropriately groomed Eye Contact: good eye contact Motor Behavior: no abnormal motor movements and + psychomotor retardation Speech: + abnormal rate/rhythm/volume of speech (quiet, brief) Affect: + constricted affect Mood: + anxious mood Thought Process: + concrete thought process; no thought blocking Thought Content: + paranoid Suicidal Thoughts: denies suicidal thoughts, denies suicidal plan and denies almeida icidal intent Homicidal Thoughts: denies homicidal thoughts Hallucinations: + auditory hallucinations (lessening); no visual hallucinations Cognition: recent memory grossly intact, remote memory grossly intact and language grossly intact Estimated Intelligence: consistent with education level Insight: + limited insight Judgment: + limited judgement Vital Signs (Past 24 Hours) Last Vital Signs Temp 36.9 C 05/19/23 06:38 Pulse 96 H 05/19/23 06:38 Resp 16 05/19/23 06:38 BP 135/88 05/19/23 06:38 Pulse Ox 98 05/18/23 06:00 O2 Del Method Room Air 05/18/23 06:00 Results & Data ([facility]) Current Inpatient Medications Current Inpatient Medications: Current Inpatient Medications Acetaminophen (Acetaminophen 325 Mg Tab) 650 mg PO Q4H PRN PRN Reason: Headache or Minor Fever Stop: 06/09/23 21:01 Al Hydrox/Mg Hydrox/Simethicone (Aluminum/Magnesium Susp 30 Ml Udc) 30 ml PO Q4H PRN PRN Reason: GI Upset Stop: 06/09/23 21:01 Benztropine Mesylate (Benztropine Mesylate 0.5 Mg Tab) 0.5 mg PO BID PRN PRN Reason: muscle stiffness Stop: 06/16/23 12:15 Bismuth Subsalicylate (Bismuth Subsalicylate Liqd 236 Ml) 15 ml PO PRN PRN PRN Reason: Loose Stool Stop: 06/09/23 21:01 Haloperidol (Haloperidol 5 Mg Tab) 5 mg PO BID PRN PRN Reason: hallucinations Stop: 06/16/23 10:25 Last Admin: 05/18/23 11:42 Dose: 5 mg Haloperidol (Haloperidol 5 Mg Tab) 5 mg PO HS ANETA Stop: 06/16/23 21:59 Last Admin: 05/18/23 21:18 Dose: 5 mg Haloperidol (Haloperidol 5 Mg Tab) 2.5 mg PO QD@08 ANETA Stop: 06/17/23 07:59 Last Admin: 05/19/23 09:09 Dose: 2.5 mg Hydroxyzine HCl (Hydroxyzine Hcl 25 Mg Tab) 50 mg PO HSZ PRN PRN Reason: Insomnia Stop: 06/09/23 21:01 Hydroxyzine HCl (Hydroxyzine Hcl 25 Mg Tab) 25 mg PO Q4H PRN PRN Reason: Anxiety Stop: 06/09/23 21:01 Magnesium Hydroxide (Magnesium Hydroxide Susp 30 Ml Udc) 30 ml PO DAILY PRN PRN Reason: Constipation Stop: 06/09/23 21:01 Sodium Chloride (Sodium Chloride 0.65% Na Soln 45 Ml ([place])) 1 - 2 sprays NA PRN PRN PRN Reason: Nasal Dryness/Congestion Stop: 06/09/23 21:01 Mental Health & Subst Abuse Tx Therapist Name of Therapist: Shagufta [facility] Post Discharge Appointments Primary Care Physician Name Of Family Doctor/PCP: Denies Contact Information Discharge Discharge Address: [address] [place] [address] [id number] [place] [address]
[2023-05-19] MEDS: haloperidoL 5 MG TAB PO PRN (14:53)
[2023-05-20] MEDS: haloperidoL 5 MG TAB PO SCH ×3 (09:18→21:07)
[2023-05-20] MEDS ORDERED: BENZTROPINE MESYLATE 1 MG TAB PO PRN (12:59)
[2023-05-20] MEDS ORDERED: haloperidoL 5 MG TAB PO PRN (13:00)
--- NOTE | 2023-05-20 13:06 | Psychiatric Progress Note ---
Date of Service May 20, 2023 Impression / Recommendations Impression Agree with assessment per Dr. 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 He has a long history of psychosis and mood symptoms. These were under good control on risperidone, but he cut the dose due to weight gain and reports no current benefit at all. He's very depressed and anxious, and is experiencing a constant negative commentary on his actions and voices telling him others would be better off if he were . He finds this frightening and ego-dystonic and denies any suicidal intent or plan. MNPR due to acute psychosis, paranoia 05/20/2023: slow improvement, ongoing crowley, mild EPS Overall, I spent a total of 38 minutes with this case including review of chart records, direct evaluation of the patient at bedside, counseling the patient, discussion with nursing, and documentation in the electronic health record. (1) Schizoaffective disorder, bipolar type: Plan 05/20/2023: has consistently received 12.5 mg Haldol daily or more, more breakthrough in pm so he agreed to titrate to 5 mg TID with Cogentin BID 0.5 mg to minimize EPS, addition Cogentin prn. When symptoms under better control will shift toward BID dosing. Consider propranolol for anxiety. 05/19/2023: continue current meds and tx plan. Received prn Haldol yesterday so may need increase. He declines standing Cogentin trial for tremor. 05/18/2023: * Continue haldol 2.5mg qAM and 5mg HS with 5mg BID prn for hallucinations * Consider future trial of SSRI if mood doesn't improve with haldol trial 05/17/2023: * Discontinue abilify * Start haldol 2.5mg qAM and 5mg HS and 5mg BID prn for hallucinations 05/16/2023: * Discontinue Invega * Start abilify 10mg HS, 5mg qAM tomorrow and 2.5mg BID prn for hallucinations/psychosis 05/15/2023: Increase Invega to 6mg HS po with Invega 1.5mg BID prn for voices/distress from hallucinations 05/14/2023: Continue current medications and tx plan. 05/13/2023: Continue current medications and tx plan. 05/12/2023: Continue current medications and tx plan. Fasting lipid panel and glucose in AM given use of Invega. 05/11/2023: The patient was admitted to the [facility] ([facility] unit) on q15 minute checks (behavioral with suicide precautions) for safety.The patient will participate in group, recreational, and milieu ther apies and will be offered additional individual and family sessions as clinically appropriate. * stop risperidone * start paliperidone 3 mg QHS Inventory Assets Strengths: supportive relationships, voluntary, intelligent employed, Needs: safety and stabilization, medication adjustment, additional coping skills Suicide Risk Level Suicide Risk Level: High-Moderate (q15 min suicide checks) Risk Factors Assessment Male: Yes : Yes Do You Have Access To A Gun?: No Health Problems: No Mental Health Diagnoses: Yes Previous Psychiatric Hospitalization: Yes Protective Factors Assessment : No Responsible for Young Children: No Employed: Yes Supportive Family: Yes Interval History Identifying Information MARCELO DRAPER is a 43-year-old M who currently lives in [place] usually alone, but whose parents have been staying with him due to their concerns about him with a history of schizoaffective disorder, and was admitted on 05/10/23 19:39 on a 201 voluntary commitment for suicidal command auditory hallucinations. Chief Complaint "my testicles felt funny but the medicine helped." Review of Systems Sleep Information Total Hours of Sleep: 7.5 Meal Information Percent Meal Consumed - Breakfast: 100 Percent Meal Consumed - Lunch: 100 Percent Meal Consumed - Dinner: 100 Subjective Subjective Patient was seen & assessed and interval progress reviewed with nursing. did require prn Haldol again yesterday for breakthrough crowley. Notes some social anxiety which is baseline for him in groups feels sweaty palms, etc. He reports feeling he can't fully process conversations yet, even in [place] (primary language) with his father. Patient must have been experiencing some dystonia to groin muscle as sensation of lifeguard or retraction of testicles resolved with 0.5 mg Cogentin. Denies currently and declines exam. Physical Exam Psychiatric Orientation: alert and cooperative Apperance: appropriately dressed and appropriately groomed Eye Contact: good eye contact Motor Behavior: no abnormal motor movements Speech: normal rate/rhythm/volume of speech Affect: + constricted affect Mood: + anxious mood Thought Process: + concrete thought process; no thought blocking Thought Content: reality based without delusions Suicidal Thoughts: denies suicidal thoughts, denies suicidal plan and denies suicidal intent Homicidal Thoughts: denies homicidal thoughts Hallucinations: + auditory hallucinations (lessening); no visual hallucinations Cognition: language grossly intact Vital Signs (Past 24 Hours) Last Vital Signs Temp 37.2 C 05/20/23 06:33 Pulse 105 H 05/20/23 06:33 Resp 16 05/20/23 06:33 BP 142/92 H 05/20/23 06:33 Pulse Ox 98 05/18/23 06:00 O2 Del Method Room Air 05/18/23 06:00 Results & Data ([facility]) Current Inpatient Medications Current Inpatient Medications: Current Inpatient Medications Acetaminophen (Acetaminophen 325 Mg Tab) 650 mg PO Q4H PRN PRN Reason: Headache or Minor Fever Stop: 06/09/23 21:01 Al Hydrox/Mg Hydrox/Simethicone (Aluminum/Magnesium Susp 30 Ml Udc) 30 ml PO Q4H PRN PRN Reason: GI Upset Stop: 06/09/23 21:01 Benztropine Mesylate (Benztropine Mesylate 0.5 Mg Tab) 0.5 mg PO BID [facility] Stop: 06/19/23 20:59 Benztropine Mesylate (Benztropine Mesylate 1 Mg Tab) 1 mg PO Q8 PRN PRN Reason: muscle stiffness Stop: 06/16/23 12:15 Bismuth Subsalicylate (Bismuth Subsalicylate Liqd 236 Ml) 15 ml PO PRN PRN PRN Reason: Loose Stool Stop: 06/09/23 21:01 Haloperidol (Haloperidol 5 Mg Tab) 5 mg PO TID ANETA Stop: 06/19/23 13:59 Haloperidol (Haloperidol 5 Mg Tab) 5 mg PO Q8 PRN PRN Reason: hallucinations Stop: 06/16/23 10:25 Hydroxyzine HCl (Hydroxyzine Hcl 25 Mg Tab) 50 mg PO HSZ PRN PRN Reason: Insomnia Stop: 06/09/23 21:01 Hydroxyzine HCl (Hydroxyzine Hcl 25 Mg Tab) 25 mg PO Q4H PRN PRN Reason: Anxiety Stop: 06/09/23 21:01 Magnesium Hydroxide (Magnesium Hydroxide Susp 30 Ml Udc) 30 ml PO DAILY PRN PRN Reason: Constipation Stop: 06/09/23 21:01 Sodium Chloride (Sodium Chloride 0.65% Na Soln 45 Ml ([place])) 1 - 2 sprays NA PRN PRN PRN Reason: Nasal Dryness/Congestion Stop: 06/09/23 21:01 Mental Health & Subst Abuse Tx Therapist Name of Therapist: Shagufta [facility] Post Discharge Appointments Primary Care Physician Name Of Family Doctor/PCP: Denies Contact Information Discharge Discharge Address: [address] [place] [address] [address] [place] [address]
[2023-05-20] MEDS: BENZTROPINE MESYLATE 0.5 MG TAB PO SCH (21:06)
[2023-05-21] MEDS: haloperidoL 5 MG TAB PO SCH ×3 (08:54→21:36)
[2023-05-21] MEDS: BENZTROPINE MESYLATE 0.5 MG TAB PO SCH ×2 (08:54→21:36)
--- NOTE | 2023-05-21 13:33 | Psychiatric Progress Note ---
Date of Service May 21, 2023 Impression / Recommendations Impression Agree with assessment per Dr. 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 He has a long history of psychosis and mood symptoms. These were under good control on risperidone, but he cut the dose due to weight gain and reports no current benefit at all. He's very depressed and anxious, and is experiencing a constant negative commentary on his actions and voices telling him others would be better off if he were . He finds this frightening and ego-dystonic and denies any suicidal intent or plan. MNPR due to acute psychosis, paranoia 05/21/2023: slow improvement, fewer breakthrough napier, EPS resolving Overall, I spent a total of 40 minutes with this case including review of chart records, direct evaluation of the patient at bedside, counseling the patient, discussion with treatment team, and documentation in the electronic health record. (1) Schizoaffective disorder, bipolar type: Plan 05/21/2023: risks/benefits/alternatives reviewed re: trial of low dose propranolol for anxiety with physical symptoms. start 20 mg PO BID this pm. 05/20/2023: has consistently received 12.5 mg Haldol daily or more, more breakthrough in pm so he agreed to titrate to 5 mg TID with Cogentin BID 0.5 mg to minimize EPS, addition Cogentin prn. When symptoms under better control will shift toward BID dosing. Consider propranolol for anxiety. 05/19/2023: continue current meds and tx plan. Received prn Haldol yesterday so may need increase. He declines standing Cogentin trial for tremor. 05/18/2023: * Continue haldol 2.5mg qAM and 5mg HS with 5mg BID prn for hallucinations * Consider future trial of SSRI if mood doesn't improve with haldol trial 05/17/2023: * Discontinue abilify * Start haldol 2.5mg qAM and 5mg HS and 5mg BID prn for hallucinations 05/16/2023: * Discontinue Invega * Start abilify 10mg HS, 5mg qAM tomorrow and 2.5mg BID prn for hallucinations/ psychosis 05/15/2023: Increase Invega to 6mg HS po with Invega 1.5mg BID prn for voices/distress from hallucinations 05/14/2023: Continue current medications and tx plan. 05/13/2023: Continue current medications and tx plan. 05/12/2023: Continue current medications and tx plan. Fasting lipid panel and glucose in AM given use of Invega. 05/11/2023: The patient was admitted to the [facility] ([facility]) on q15 minute checks (behavioral with suicide precautions) for safety.The patient will participate in group, recreational, and milieu therapies and will be offered additional individual and family sessions as clinically appropriate. * stop risperidone * start paliperidone 3 mg QHS Inventory Assets Strengths: supportive relationships, voluntary, intelligent employed, Needs: safety and stabilization, medication adjustment, additional coping skills Suicide Risk Level Suicide Risk Level: Moderate (q15 min suicide checks) Risk Factors Assessment Male: Yes : Yes Do You Have Access To A Gun?: No Health Problems: No Mental Health Diagnoses: Yes Previous Psychiatric Hospitalization: Yes Protective Factors Assessment : No Responsible for Young Children: No Employed: Yes Supportive Family: Yes Interval History Identifying Information MARCELO DRAPER is a 43-year-old M who currently lives in [place] usually alone, but whose parents have been staying with him due to their concerns about him with a history of schizoaffective disorder, and was admitted on 05/10/23 19:39 on a 201 voluntary commitment for suicidal command auditory hallucinations. Chief Complaint "I feel like my energy is better today." Review of Systems Sleep Information Total Hours of Sleep: 8.5 Meal Information Percent Meal Consumed - Breakfast: 100 Percent Meal Consumed - Lunch: 100 Percent Meal Consumed - Dinner: 100 Subjective Subjective Patient was seen & assessed and interval progress reviewed with treatment team. Marcelo reports less breakthrough in hallucinations, better able to attend to activities but not yet to baseline with his reading, etc. Denies command in nature. Did not require prn. No recurrence of EPS. Discussed his baseline anxiety which is primarily social but also performance related to presentations, not actively lecturing. No hx of heart issues/dany. BP here have been elevated intermittently, both parents have HTN. Physical Exam Psychiatric Orientation: alert Apperance: appropriately dressed and appropriately groomed Eye Contact: good eye contact Motor Behavior: no abnormal motor movements Speech: normal rate/rhythm/volume of speech Affect: + constricted affect Mood: + anxious mood; no depressed mood Thought Process: + concrete thought process Thought Content: reality based without delusions Suicidal Thoughts: denies suicidal thoughts Homicidal Thoughts: denies homicidal thoughts Hallucinations: no auditory hallucinations and no visual hallucinations Cognition: attention grossly intact and language grossly intact Estimated Intelligence: consistent with education level Insight: + limited insight Judgment: + limited judgement Vital Signs (Past 24 Hours) Last Vital Signs Temp 37.3 C 05/21/23 06:38 Pulse 85 05/21/23 06:38 Resp 16 05/21/23 06:38 BP 139/83 05/21/23 06:38 Pulse Ox 98 05/18/23 06:00 O2 Del Method Room Air 05/18/23 06:00 Results & Data ([facility]) Current Inpatient Medications Current Inpatient Medications: Current Inpatient Medications Acetaminophen (Acetaminophen 325 Mg Tab) 650 mg PO Q4H PRN PRN Reason: Headache or Minor Fever Stop: 06/09/23 21:01 Al Hydrox/Mg Hydrox/Simethicone (Aluminum/Magnesium Susp 30 Ml Udc) 30 ml PO Q4H PRN PRN Reason: GI Upset Stop: 06/09/23 21:01 Benztropine Mesylate (Benztropine Mesylate 0.5 Mg Tab) 0.5 mg PO BID ANETA Stop: 06/19/23 20:59 Last Admin: 05/21/23 08:54 Dose: 0.5 mg Benztropine Mesylate (Benztropine Mesylate 1 Mg Tab) 1 mg PO Q8 PRN PRN Reason: muscle stiffness Stop: 06/16/23 12:15 Bismuth Subsalicylate (Bismuth Subsalicylate Liqd 236 Ml) 15 ml PO PRN PRN PRN Reason: Loose Stool Stop: 06/09/23 21:01 Haloperidol (Haloperidol 5 Mg Tab) 5 mg PO TID ANETA Stop: 06/19/23 13:59 Last Admin: 05/21/23 08:54 Dose: 5 mg Haloperidol (Haloperidol 5 Mg Tab) 5 mg PO Q8 PRN PRN Reason: hallucinations Stop: 06/16/23 10:25 Hydroxyzine HCl (Hydroxyzine Hcl 25 Mg Tab) 50 mg PO HSZ PRN PRN Reason: Insomnia Stop: 06/09/23 21:01 Hydroxyzine HCl (Hydroxyzine Hcl 25 Mg Tab) 25 mg PO Q4H PRN PRN Reason: Anxiety Stop: 06/09/23 21:01 Magnesium Hydroxide (Magnesium Hydroxide Susp 30 Ml Udc) 30 ml PO DAILY PRN PRN Reason: Constipation Stop: 06/09/23 21:01 Propranolol HCl (Propranolol Hcl 20 Mg Tab) 20 mg PO BIDM ANETA Stop: 06/20/23 17:44 Sodium Chloride (Sodium Chloride 0.65% Na Soln 45 Ml ([place])) 1 - 2 sprays NA PRN PRN PRN Reason: Nasal Dryness/Congestion Stop: 06/09/23 21:01 Mental Health & Subst Abuse Tx Psychiatrist Name of Psychiatrist: Danette Jacobs Psychiatrist's Date Of Appointment With Psychiatric Provider: 06/22/2023 Time of Appointment with Psychiatrist: 1:30PM Psychiatric Appointment Comment: [address] [place], [place] Therapist Name of Therapist: Shagufta @Geni Olimpia Post Discharge Appointments Primary Care Physician Name Of Family Doctor/PCP: MALENA Bhatti (HOSPITAL FOLLOW-UP) Primary Care Date of Future Appointment with PCP: 05/25/2023 Time of Appointment with PCP: 1PM Provider Appointment Comment: [address], [place] [address] Contact Information Discharge Discharge Address: [address] [place] [address]
[2023-05-21] MEDS: PROPRANOLOL HCL 20 MG TAB PO SCH (18:25)
[2023-05-22] MEDS: BENZTROPINE MESYLATE 0.5 MG TAB PO SCH ×2 (09:08→21:13)
[2023-05-22] MEDS: haloperidoL 5 MG TAB PO SCH ×3 (09:08→21:12)
[2023-05-22] MEDS: PROPRANOLOL HCL 20 MG TAB PO SCH ×2 (10:05→18:04)
--- NOTE | 2023-05-22 13:51 | Psychiatric Progress Note ---
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 Has responded to Haldol. MNPR due to acute psychosis, paranoia 05/22/2023: anxiety improved, declines shift to BID dosing of Haldol. Overall, I spent a total of 37 minutes with this case including review of chart records, direct evaluation of the patient at bedside, counseling the patient, discussion with treatment team, and documentation in the electronic health record. (1) Schizoaffective disorder, bipolar type: Plan 05/22/2023: tolerating propranolol, BP improved. 05/21/2023: risks/benefits/alternatives reviewed re: trial of low dose propranolol for anxiety with physical symptoms. start 20 mg PO BID this pm. 05/20/2023: has consistently received 12.5 mg Haldol daily or more, more breakthrough in pm so he agreed to titrate to 5 mg TID with Cogentin BID 0.5 mg to minimize EPS, addition Cogentin prn. When symptoms under better control will shift toward BID dosing. Consider propranolol for anxiety. 05/19/2023: continue current meds and tx plan. Received prn Haldol yesterday so may need increase. He declines standing Cogentin trial for tremor. 05/18/2023: * Continue haldol 2.5mg qAM and 5mg HS with 5mg BID prn for hallucinations * Consider future trial of SSRI if mood doesn't improve with haldol trial 05/17/2023: * Discontinue abilify * Start haldol 2.5mg qAM and 5mg HS and 5mg BID prn for hallucinations 05/16/2023: * Discontinue Invega * Start abilify 10mg HS, 5mg qAM tomorrow and 2.5mg BID prn for hallucinations/psychosis 05/15/2023: Increase Invega to 6mg HS po with Invega 1.5mg BID prn for voices/distress from hallucinations 05/14/2023: Continue current medications and tx plan. 05/13/2023: Continue current medications and tx plan. 05/12/2023: Continue current medications and tx plan. Fasting lipid panel and glucose in AM given use of Invega. 05/11/2023: The patient was admitted to the [facility] ([facility] inpatient mental health unit) on q15 minute checks (behavioral with suicide precautions) for safety.The patient will participate in group, recreational, and milieu therapies and will be offered additional individual and family sessions as clinically appropriate. * stop risperidone * start paliperidone 3 mg QHS Inventory Assets Strengths: supportive relationships, voluntary, intelligent employed, Needs: safety and stabilization, medication adjustment, additional coping skills Suicide Risk Level Suicide Risk Level: Moderate (q15 min suicide checks) Risk Factors Assessment Male: Yes : Yes Do You Have Access To A Gun?: No Health Problems: No Mental Health Diagnoses: Yes Previous Psychiatric Hospitalization: Yes Protective Factors Assessment : No Responsible for Young Children: No Employed: Yes Supportive Family: Yes Interval History Identifying Information MARCELO DRAPER is a 43-year-old M who currently lives in [place] usually alone, but whose parents have been staying with him due to their concerns about him with a history of schizoaffective disorder, and was admitted on 05/10/23 19:39 on a 201 voluntary commitment for suicidal command auditory hallucinations. Chief Complaint "I was able to read for a longer period this morning." Review of Systems Sleep Information Total Hours of Sleep: 7.5 Meal Information Percent Meal Consumed - Breakfast: 100 Percent Meal Consumed - Lunch: 100 Percent Meal Consumed - Dinner: 100 Subjective Subjective Patient was seen & assessed and interval progress reviewed with nursing and social work. rates mood as 8/10. attended all activities. denied hallucinations. Feels less anxious. Physical Exam Psychiatric Orientation: alert and oriented x 3 Apperance: appropriately dressed and appropriately groomed Eye Contact: good eye contact Motor Behavior: no abnormal motor movements Speech: normal rate/rhythm/volume of speech Affect: euthymic affect Mood: + anxious mood Thought Process: goal directed thought process Thought Content: reality based without delusions Suicidal Thoughts: denies suicidal thoughts Homicidal Thoughts: denies homicidal thoughts Hallucinations: no auditory hallucinations and no visual hallucinations Cognition: attention grossly intact and language grossly intact Estimated Intelligence: consistent with education level Vital Signs (Past 24 Hours) Last Vital Signs Temp 37 C 05/22/23 06:36 Pulse 78 05/22/23 06:37 Resp 16 05/22/23 06:36 BP 123/86 05/22/23 06:37 Pulse Ox 98 05/18/23 06:00 O2 Del Method Room Air 05/18/23 06:00 Results & Data ([facility]) Current Inpatient Medications Current Inpatient Medications: Current Inpatient Medications Acetaminophen (Acetaminophen 325 Mg Tab) 650 mg PO Q4H PRN PRN Reason: Headache or Minor Fever Stop: 06/09/23 21:01 Al Hydrox/Mg Hydrox/Simethicone (Aluminum/Magnesium Susp 30 Ml Udc) 30 ml PO Q4H PRN PRN Reason: GI Upset Stop: 06/09/23 21:01 Benztropine Mesylate (Benztropine Mesylate 0.5 Mg Tab) 0.5 mg PO BID [facility] Stop: 06/19/23 20:59 Last Admin: 05/22/23 09:08 Dose: 0.5 mg Benztropine Mesylate (Benztropine Mesylate 1 Mg Tab) 1 mg PO Q8 PRN PRN Reason: muscle stiffness Stop: 06/16/23 12:15 Bismuth Subsalicylate (Bismuth Subsalicylate Liqd 236 Ml) 15 ml PO PRN PRN PRN Reason: Loose Stool Stop: 06/09/23 21:01 Haloperidol (Haloperidol 5 Mg Tab) 5 mg PO TID [facility] Stop: 06/19/23 13:59 Last Admin: 05/22/23 13:21 Dose: 5 mg Haloperidol (Haloperidol 5 Mg Tab) 5 mg PO Q8 PRN PRN Reason: hallucinations Stop: 06/16/23 10:25 Hydroxyzine HCl (Hydroxyzine Hcl 25 Mg Tab) 50 mg PO HSZ PRN PRN Reason: Insomnia Stop: 06/09/23 21:01 Hydroxyzine HCl (Hydroxyzine Hcl 25 Mg Tab) 25 mg PO Q4H PRN PRN Reason: Anxiety Stop: 06/09/23 21:01 Magnesium Hydroxide (Magnesium Hydroxide Susp 30 Ml Udc) 30 ml PO DAILY PRN PRN Reason: Constipation Stop: 06/09/23 21:01 Propranolol HCl (Propranolol Hcl 20 Mg Tab) 20 mg PO BIDM [facility] Stop: 06/20/23 17:44 Last Admin: 05/22/23 10:05 Dose: 20 mg Sodium Chloride (Sodium Chloride 0.65% Na Soln 45 Ml ([place])) 1 - 2 sprays NA PRN PRN PRN Reason: Nasal Dryness/Congestion Stop: 06/09/23 21:01 Mental Health & Subst Abuse Tx Psychiatrist Name of Psychiatrist: Danette Jacobs Psychiatrist's Date Of Appointment With Psychiatric Provider: 06/22/2023 Time of Appointment with Psychiatrist: 1:30PM Psychiatric Appointment Comment: [address] [place], [place] Therapist Name of Therapist: Shagufta @Danette Doan Post Discharge Appointments Primary Care Physician Name Of Family Doctor/PCP: MALENA Bhatti (HOSPITAL FOLLOW-UP) Primary Care Date of Future Appointment with PCP: 05/25/2023 Time of Appointment with PCP: 1PM Provider Appointment Comment: [address], [place] [address] Contact Information Discharge Discharge Address: [address] [place] [address]
[2023-05-23] MEDS: haloperidoL 5 MG TAB PO SCH (09:29)
[2023-05-23] MEDS: BENZTROPINE MESYLATE 0.5 MG TAB PO SCH (09:29)
[2023-05-23] MEDS: PROPRANOLOL HCL 20 MG TAB PO SCH (09:29)
--- NOTE | 2023-05-23 20:36 | Discharge Summary ---
Date of Service May 23, 2023 History of Present Illness As per Dr. Finch's on admission: As part of a thorough review of the available medical records, I have read and confirmed the following note by the ED physician: "43-year-old female [sic] presents emergency department with complaint of auditory hallucinations that started over the past few weeks. Patient was supposed to be on Risperdal. Patient states that the auditory voices are telling him mean things. Patient states he is not currently suicidal or homicidal. Patient denies any alcohol or drug ingestion. Patient has a history of the same." and the following note by the ED psychiatric catalytic case operator: "Patient present flat, reporting disorganized thought process, minimally responding to questions and occasional irritation. For the past few weeks, patient has been experiencing command hallucination with the voices saying everybody would be better off if you kill yourself. At this time, patient denies acting out on these thoughts yet or developing a plan. Prior to arrival, patient was seen at his outpatient provider at [facility] and she recommended that patient present to the ED for further evaluation. Patient is prescribed Risperdal, but cut his dose in half, on his own volition and not recommended by his medication management provider. Patient was unable to articulate why he decided to cut his dosage. 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 Patient reports depressive symptoms as social withdrawal, anhedonia, lack of motivation, decreased appetite, loss of daily functioning, feelings of helpless/hopelessness, decreased concentration and decreased sleep of 5-6 hours of broken sleep. Patient described severe anxiety on most days with symptoms of sweating, excessive worry, sleep disturbance and heart palpitations. Patient reports rarely drinking alcohol and denying drug or tobacco use. Patient lives in an apartment with his parents. Patient reports previous psychiatric admissions to include [facility] and [facility]. Patient acknowledges he is struggling and knows when he needs inpatient help and is voluntary for treatment" Review of the medical record reveals no previous or outside psychiatric records, despite his report of having been admitted here before. He appears to carry a diagnosis of schizoaffective disorder. Review of pertinent labs reveals they are noncontributory. A urine toxicology screen was negative for all tested substrates. BAL was <10 mg/dL. Pt reports chronic voices for many years. These seem to be female and often take the form of inaudible whispers but which at times make a running, derogatory comment on everything he does. He says he's been admitted numerous times for this including here, but records of any admissions do not appear in the EHR. He says he's supposed to be taking risperidone 3 mg BID prescribed at [place] and that at that dose the voices are barely noticeable. However, he's experienced significant weight gain and has reduced the dose to 1.5 mg once a day without having told his prescriber. Since that change the voices have recurred and have been telling him that he's useless and others would be better off if he were to kill himself. He's felt very depressed, and has withdrawn from his already scant social life. He has lost interest, has no energy or motivation, reports initial and middle insomnia, has reduced appetite and has "pretty much stopped doing everything". He has felt very anxious with some episodic panic symptoms. Physical Exam Psychiatric See admission H&P and DOD assessment. Vital Signs (Past 24 Hours) Last Vital Signs Temp 36.9 C 05/23/23 09:53 Pulse 91 H 05/23/23 09:53 Resp 16 05/23/23 09:53 BP 138/81 05/23/23 09:53 Pulse Ox 98 05/23/23 09:53 O2 Del Method Room Air 05/18/23 06:00 Principal Diagnosis schizoaffective disorder Psychiatric Data See daily stay summary. In short, safety was maintained and the patient was cooperative with care. Medication changes initially included discontinuation of Risperdal in favor of a trial of Invega. He had some improvement in symptoms but ultimately admitted to more severe hallucinations and mood symptoms within the context of a family meeting and his discharged on 05/15 was cancelled in favor of ongoing stay and trial of Abilify which was quickly halted in favor of Haldol. The dose of Haldol was titrated to address breakthrough napier and he experienced minimal EPS which readily responded to low dose Cogentin. He c ontinued to note social anxiety in groups and difficulty concentrating either due to resolving thought disorganization or anxiety. He agreed to a trial of prorpanolol which was effective and also improved his borderline BP. A second family session was held to review safety planning and transition home. A safety plan was completed prior to discharge which includes his parents continuing to stay with him and oversee medication compliance. He doesn't anticipate returning to work until later this month. He will complete his employment by July and return with family to [place]. Reviewed the importance of ongoing medication compliance, he declined shifting his Haldol to BID as feels he is doing well. Reviewed that Cogentin can likely be tapered soon. Reviewed his diagnosis, risk fo recurrence, and need for longer term monitoring of his medication given risks of TD, etc. Haldol does come in a decanoate but he reports commitment to taking medication and perhaps could be converted to a newer agent after a period of stability before continuing an THOMAS indefinitely. His care will also be shifting out of state after the holidays. Day of Discharge Assessment Today the patient voices readiness for discharge. They note improvement in mood and deny thoughts to harm self or others. Thoughts remain organized and they are improved from admission. There is no evidence of psychosis. They agree to take mediations as prescribed and keep follow-up appointments. They are stable for discharge to outpatient level of care. Transition of Care Transition Of Care Record: was reviewed with the patient Advance Directives Advance Directives Information Provided: Yes Advance Directives: No Mental Health Advance Directive: No Advance Directives on File: No Living Will: No Power of Gas Engine Operator: No Advance Directives Reason:: Declines as Mental Health Visit. Suicide Risk Level Suicide Risk Level Comments: Suicide risk at discharge is deemed low as the patient is no longer requiring 24-hr monitoring, has a safety plan, and is free of suicidal ideation at discharge. Risk Factors Assessment Male: Yes : Yes Do You Have Access To A Gun?: No Health Problems: No Mental Health Diagnoses: Yes Previous Psychiatric Hospitalization: Yes Protective Factors Assessment : No Responsible for Young Children: No Employed: Yes Supportive Family: Yes Tobacco Cessation at Discharge Tobacco Cessation Medication Prescribed at Discharge: Not Applicable/Non-Smoker Total Time Total Time Spent: Greater Than 30 Minutes (38 minutes) Total Time Includes: Examination of the patient, Discharge Planning and Medication Reconciliation Discharge Data Lab Results 05/10/23 05/13/23 11:39 07:26 WBC 8.27 RBC 5.16 Hgb 15.9 Hct 46.6 MCV 90.3 MCH 30.8 MCHC 34.1 RDW Std Deviation 42.2 RDW Coeff of Daria 12.7 Plt Count 255 MPV 10.4 Immature Gran % (Auto) 0.2 Neut % (Auto) 69.8 Lymph % (Auto) 22.1 [place] % (Auto) 7.3 Eos % (Auto) 0.4 Baso % (Auto) 0.2 Neut # (Auto) 5.77 Lymph # (Auto) 1.83 [place] # (Auto) 0.60 H Eos # (Auto) 0.03 Baso # (Auto) 0.02 Immature Gran # (Auto) 0.02 Sodium 136 Potassium 4.0 Chloride 104 Carbon Dioxide 23 Anion Gap 9 BUN 14 Creatinine 1.01 Est Cr Clr Drug Dosing 117.9 Est GFR ( Amer) 105.1 Est GFR (Non-Af Amer) 90.7 BUN/Creatinine Ratio 13.9 Glucose 92 Fasting Glucose 100 H Calcium 10.0 Total Bilirubin 0.6 AST 30 ALT 57 H Alkaline Phosphatase 74 Total Protein 8.6 H Albumin 4.7 Globulin 3.9 Albumin/Globulin Ratio 1.2 Triglycerides 195 H Cholesterol 166 LDL Cholesterol, Calc 89 VLDL Cholesterol, Calc 39 H HDL Cholesterol 38 Cholesterol/HDL Ratio 4.4 TSH 2.330 Urine Color Yellow Urine Appearance Clear Urine pH 7.0 Ur Specific [place] 1.016 Urine Protein Negative Urine Glucose (UA) Negative Urine Ketones Negative Urine Blood Negative Urine Nitrite Negative Urine Bilirubin Negative Urine Urobilinogen Negative Ur Leukocyte Esterase Negative Salicylates < 3.0 L Urine Opiates Screen Neg Ur Methadone, Qual Neg Acetaminophen < 3 L Urine Barbiturates Neg Ur Phencyclidine (PCP) Neg U Amphetamin/Meth Scrn Neg MDMA (Ecstasy) Screen Neg U Benzodiazepines Scrn Neg Ur Cocaine Metabolite Neg U Marijuana (THC) Screen Neg Ethyl Alcohol mg/dL < 10.0 SARS-CoV-2, RNA, NAAT NEGATIVE Hospital Course (1) Schizoaffective disorder, bipolar type: Plan 05/22/2023: tolerating propranolol, BP improved. 05/21/2023: risks/benefits/alternatives reviewed re: trial of low dose propranolol for anxiety with physical symptoms. start 20 mg PO BID this pm. 05/20/2023: has consistently received 12.5 mg Haldol daily or more, more breakthrough in pm so he agreed to titrate to 5 mg TID with Cogentin BID 0.5 mg to minimize EPS, addition Cogentin prn. When symptoms under better control will shift toward BID dosing. Consider propranolol for anxiety. 05/19/2023: continue current meds and tx plan. Received prn Haldol yesterday so may need increase. He declines standing Cogentin trial for tremor. 05/18/2023: * Continue haldol 2.5mg qAM and 5mg HS with 5mg BID prn for hallucinations * Consider future trial of SSRI if mood doesn't improve with haldol trial 05/17/2023: * Discontinue abilify * Start haldol 2.5mg qAM and 5mg HS and 5mg BID prn for hallucinations 05/16/2023: * Discontinue Invega * Start abilify 10mg HS, 5mg qAM tomorrow and 2.5mg BID prn for hallucinations/psychosis 05/15/2023: Increase Invega to 6mg HS po with Invega 1.5mg BID prn for voices/distress from hallucinations 05/14/2023: Continue current medications and tx plan. 05/13/2023: Continue current medications and tx plan. 05/12/2023: Continue current medications and tx plan. Fasting lipid panel and glucose in AM given use of Invega. 05/11/2023: The patient was admitted to the [facility] ([facility] inpatient mental health unit) on q15 minute checks (behavioral with suicide precautions) for safety.The patient will participate in group, recreational, and milieu therapies and will be offered additional individual and family sessions as clinically appropriate. * stop risperidone * start paliperidone 3 mg QHS Mental Health & Subst Abuse Tx Psychiatrist Name of Psychiatrist: Danette Jacobs Psychiatrist's Date Of Appointment With Psychiatric Provider: 06/22/2023 Time of Appointment with Psychiatrist: 1:30PM Psychiatric Appointment Comment: [address] [place], [place] Psychiatrist Release of Information: Obtained, Reviewed and Signed Therapist Name of Therapist: Shagufta @Danette Doan Post Discharge Appointments Primary Care Physician Name Of Family Doctor/PCP: MALENA Bhatti (HOSPITAL FOLLOW-UP) Primary Care Date of Future Appointment with PCP: 05/25/2023 Time of Appointment with PCP: 1PM Provider Appointment Comment: [address], [place] [address] Primary Care Release of Information: Obtained, Reviewed and Signed Smoking Cessation Counseling Tobacco Cessation Medication Prescribed at Discharge: Not Applicable/Non-Smoker Other #1: Name of Aftercare Appointment: MALENA Bhatti (established pt appointment) Phone Number of Aftercare Appointment: [phone] Date of Aftercare Appointment: 06/25/23 Time of Aftercare Appointment: 10am Aftercare Appointment Comment: [address], [place] [address] Contact Information Discharge Discharge Address: [address] [place] [address] Discharge Plan Discharge Items Patient Disposition: Home - Self-Care Reason For Visit: PSYCHOTIC DISORDER Discharge Diagnosis: schizoaffective disorder Activity: Resume your previous activity Non-emergency contact: Primary Care Provider, Psychiatrist and Management Professional Call non-emergency contact if: you have any medication questions and your symptoms worsen Follow-up/Referrals: PCP,NO [Primary Care Provider] - Diet: Regular Addtl Attending Provider Instructions: SPECIAL CARE INSTRUCTIONS: 1. Follow through with your scheduled aftercare appointments. If unable to keep an appointment, please call to reschedule. 2. Take your medication only as prescribed. Medication should not be changed or stopped without the approval of your doctor. In the event of worsening symptoms or concerns about side effects, contact your doctor immediately. 3. Utilize new healthy coping skills, anger management skills, and stress management skills learned during your hospitalization. Journal feelings and process them with a support person. Identify stressors or situations that may result in relapse, deterioration or inappropriate behaviors and develop a plan to deal with those issues. 4. If your coping skills are ineffective and you are in crisis, contact your outpatient providers for direction. If unable to reach your providers, please call the [facility] CRISIS LINE AT , go to the [facility] walk-in center at [address], [address], [place], or go to the closest Emergency Room. 5. Avoid alcohol and un-prescribed drugs. 6. You have been provided with the Mental Health Advance Directives Pamphlet for your review. 7. Your condition is stable for discharge to outpatient level of care, but recovery is an ongoing process. Ifthoughts to harm yourself or others return, follow the safety plan developed during your stay. Planning for a safe return home includes securing weapons. Our treatment team recommends weaponsbe removed from the home until your outpatient provider reassesses your progress. In rare cases where the items themselvescannot be removed, guns and ammunitionshould be secured separatelyand keys stored by a reliable personoutside of the home. If you were admitted on an involuntary commitment, the police or other legal authorities may be involved in this process. AFTERCARE APPOINTMENTS: * Please call your insurance company prior to your scheduled appointment to confirm your aftercare providers are covered. Take your insurance information to your appointments. WHO TO CALL AND WHEN: Medical Emergencies: For questions or emergencies related to your hospital stay, please contact the Inpatient Behavioral Health Unit at [phone]. A psychiatric attendant is on-call 05/02 for the Behavioral Health Unit for emergencies At any time you feel your situation is an emergency, you may also call 911 immediately. Pending Studies at Discharge: No Stand-Alone Forms: My [facility], Smoking Cessation Medications and DC Order Prescriptions: New benztropine 0.5 mg Tablet 0.5 mg PO BID Qty: 60 0RF haloperidol 5 mg Tablet 5 mg PO TID Qty: 90 0RF Rx Instructions: (afternoon dose about 6 hours after am dose) propranolol 20 mg Tablet 20 mg PO BIDM Qty: 60 0RF Discontinued risperidone 3 mg tablet 3 mg PO HS Discharge Orders: Discharge Order (Routine); Ordered 05/23/23 Ordered By: Erika Gee Admission Data Admit Date/Time: 05/10/23 19:39 Attending Provider: Erika Gee Admit Provider: Hernan Sarabia Primary Care Provider: PCP,NO Other Interventions: Discharge Summary Assessment (RN) Last Done: 05/23/23 09:53 PSY Interdisciplinary Discharge Planning Last Done: 05/23/23 09:54 Coding Level of Care Code 42734 D/C day mgmt > 30 min Diagnoses Schizoaffective disorder, bipolar type F25.0
== END 2023-05-23 10:23 | disposition home or self-care (01) | DRG 885 ==
LOC: ED 11:17 → SUATTDRO 19:39 → 3S 19:39